=== PATIENT | male | born 1950 | race Caucasian/White ===

== ENCOUNTER 2023-11-22 11:11 | Outpatient (CLI) | payer MEDICARE, SELFPAY ==
[2023-11-22 12:12] LABS: Basophils # 0.1 K/mm3 (0-0.2); Basophils % 0.8 % (0.1-2.0); Eosinophils # 0.1 K/mm3 (0.0-0.4); Eosinophils % 1.1 % (0.1-12.0); Hematocrit 46.7 % (42.0-52.0); Hemoglobin 16.2 g/dL (14.1-18.0); Lymphocytes # 1.1 K/mm3 (0.7-4.5); Lymphocytes % 18.1 % (10-50); Mean Corpuscular HGB Conc 34.7 g/dL (31.8-35.4); Mean Corpuscular Hemoglobin 34.1 pg (27.0-31.2); Mean Corpuscular Volume 98.3 fl (80-94); Mean Platelet Volume 8.3 fl (7.4-10.4); Monocytes # 0.5 K/mm3 (0.1-1.0); Monocytes % 7.4 % (1.7-9.3); Neutrophils # 4.5 K/mm3 (1.8-7.8); Neutrophils % 72.6 % (37.0-80.0); Platelet Count 152 K/mm3 (142-424); Red Blood Count 4.75 M/mm3 (4.60-6.20); Red Cell Distribution Width 13.7 % (11.5-17.5); White Blood Count 6.2 K/mm3 (4.8-10.8)
[2023-11-22 12:35] LABS: Chloride 105 mmol/L (98-107); Sodium 141 mmol/L (136-145)
[2023-11-22 12:36] LABS: Alanine Aminotransferase 27 U/L (12-78); Aspartate Amino Transferase 35 U/L (17-59); Bilirubin,Unconjugated 1.6 mg/dL (0.0-1.1)
[2023-11-22 12:37] LABS: Albumin Level 4.7 g/dl (3.5-5.0); Alkaline Phosphatase 58 U/L (38-126); Bilirubin,Direct 0.1 mg/dl (0.0-0.4); Bilirubin,Indirect 1.6 mg/dL (0.0-0.9); Bilirubin,Total 1.7 mg/dl (0.2-1.3); Chol/HDL Ratio 4.2 (1-3.5); Cholesterol 168 mg/dl (140-200); HDL Cholesterol 40 mg/dl (40-60); Magnesium 2.1 mg/dl (1.6-2.3); Total Protein,Serum 7.3 g/dl (6.3-8.2); Triglycerides 151 mg/dl (30-150); VLDL Cholesterol 30 mg/dL (0-40)
[2023-11-22 12:38] LABS: Alanine Aminotransferase 26 U/L (12-78); Albumin Level 4.7 g/dl (3.5-5.0); Albumin/Globulin Ratio 1.8 (1.1-1.8); Alkaline Phosphatase 61 U/L (38-126); Aspartate Amino Transferase 34 U/L (17-59); Bilirubin,Total 1.7 mg/dl (0.2-1.3); Blood Urea Nitrogen 21 mg/dl (9-20); Carbon Dioxide 26 mmol/L (22.0-30.0); Estimated Glomerular Filt Rate 66 ml/min (>60); GFR (African American) 80 ML/MIN (>60); Globulin 2.6 g/dL (1.3-3.2); Total Protein,Serum 7.3 g/dl (6.3-8.2)
[2023-11-22 12:39] LABS: Calcium 9.1 mg/dl (8.4-10.2); Glucose 82 mg/dl (74-100)
[2023-11-22 12:49] LABS: Direct LDL Cholesterol 95.86 mg/dL (100-129)
[2023-11-22 13:08] LABS: Thyroid Stimulating Hormone 3.29 uIU/mL (0.465-4.68)
[2023-11-22 13:11] LABS: Thyroid Stimulating Hormone 3.28 uIU/mL (0.465-4.68)
[2023-11-22 13:53] LABS: Hemoglobin A1C 5.4 % (4.0-6.0)
== END 2023-11-22 23:59 ==
LOC: LAB 11:13
PROVIDERS: PCP Internal Medicine; Visit Provider Nurse Practitioner
DX: E78.5 Hyperlipidemia, unspecified (principal); I10 Essential (primary) hypertension; I48.91 Unspecified atrial fibrillation; R06.00 Dyspnea, unspecified; R94.31 Abnormal electrocardiogram [ECG] [EKG]; Z79.01 Long term (current) use of anticoagulants; Z85.819 Personal history of malignant neoplasm of unspecified site of lip, oral cavity, and pharynx; Z13.1 Encounter for screening for diabetes mellitus; R53.83 Other fatigue; E05.90 Thyrotoxicosis, unspecified without thyrotoxic crisis or storm; Z79.899 Other long term (current) drug therapy
CPT/HCPCS: 36415; 80048; 80053; 80061; 80076; 83036; 83735; 84439; 84443; 85025

== ENCOUNTER 2023-12-06 14:58 | Outpatient (CLI) | payer MEDICARE, SELFPAY ==
--- NOTE | 2023-12-06 15:01 | CA_ITS ---
APPROVED REPORT EXAM: Comprehensive 2D, Doppler, and color-flow Echocardiogram Photo Booth Operator: Sherrie Barrera CRT Ht: 5 ft 10 in Wt: 176lbs BSA: 1.98 BP: 142/82 mmHg Indications: Abnormal ECG, Atrial Fibrillation, Atrial Fibrillation (chronic), Pre-Op 2D Dimensions LA Volume 45.30 mL LA Volume Index 22.40 mL/m2 (M/F) 16-34 M-Mode Dimensions RVDd 3.65 cm (0.9-2.6) LA Diam 4.05 cm (1.9-4.0) LVDd 3.98 cm (3.5-5.7) LVDs 2.48 cm (3.5-5.7) IVSd 1.54 cm (0.6-1.1) PWd 0.47 cm (0.6-1.1) EF (Teich) 68.40% FS 37.70% EDV (Teich) 69.20 mL TAPSE 2.07 (<1.7) ESV (Teich) 21.90 mL LV Diastology E Decel Time 147 (160-240 msec) E/A Ratio 4.11 LAT A' 3.50 cm/s Aortic Valve AO Peak GR. 5.00 mmHg Mitral Valve MV E Max Franco. 117.0 (40-130 cm/s) MV A Velocity 28.0 (40-130 cm/s) E/A Ratio 4.11 MV PHT 43.0 ms Pulmonary Valve PV Peak Velocity 100.0 (50-150 cm/s) Tricuspid Valve TR P. Velocity 304.00 cm/s RAP Estimate 10.00 mmHg RVSP 46.90 mmHg Left Ventricle The left ventricle is normal size. The left ventricular systolic function is normal. The left ventricular ejection fraction is within the normal range. Proximal septal thickening is noted. There is normal LV segmental wall motion. Diastolic function is indeterminate due to atrial fibrillation. LVEF is 55%. Right Ventricle The right ventricle is normal size. The right ventricular systolic function is normal. Atria The left atrium size is normal. The right atrium size is normal. There is no Doppler evidence of interatrial shunt. Aortic Valve The aortic valve is mildly thickened. There is no aortic valvular stenosis. No aortic regurgitation is present. Mitral Valve The mitral valve leaflets are mildly thickened. No evidence of mitral valve stenosis. Trace mitral regurgitation. Tricuspid Valve The tricuspid valve leaflets are thin and pliable. Mild tricuspid regurgitation. RVSP is 25-30 mmHg. Pulmonic Valve The pulmonary valve is normal in structure. Trace pulmonic regurgitation. Great Vessels The aortic root is normal in size. The ascending aorta is normal in size. Pericardium There is no pericardial effusion. Other Information Study Quality: Fair Conclusion Normal biventricular systolic function. Mild TR. Electronically signed by : Sil Liu MD 12/10/2023 00:11:18
== END 2023-12-06 23:59 ==
LOC: RT 15:01
PROVIDERS: PCP Internal Medicine; Visit Provider Internal Medicine
DX: Z01.810 Encounter for preprocedural cardiovascular examination (principal); R94.31 Abnormal electrocardiogram [ECG] [EKG]; I10 Essential (primary) hypertension; I48.91 Unspecified atrial fibrillation; E78.5 Hyperlipidemia, unspecified; R06.00 Dyspnea, unspecified; Z79.01 Long term (current) use of anticoagulants
CPT/HCPCS: 93306

== ENCOUNTER 2024-01-03 08:45 | Outpatient (CLI) | payer MEDICARE, SELFPAY ==
[2024-01-03 09:41] LABS: Blood Urea Nitrogen 20 mg/dl (9-20); Estimated Glomerular Filt Rate 66 ml/min (>60); GFR (African American) 80 ML/MIN (>60)
[2024-01-03 10:11] LABS: Prostate Specific Ag Screen 0.9 ng/ml (0.0-4.0)
== END 2024-01-03 23:59 ==
LOC: LAB 08:48
PROVIDERS: Nurse Practitioner; PCP Internal Medicine; Visit Provider Urology
DX: Z12.5 Encounter for screening for malignant neoplasm of prostate (principal); E03.9 Hypothyroidism, unspecified; R30.0 Dysuria
CPT/HCPCS: 36415; 82565; 84520; G0103

== ENCOUNTER 2024-01-11 12:55 | Outpatient (CLI) | payer MEDICARE, SELFPAY ==
--- NOTE | 2024-01-11 12:56 | CT_ITS ---
FINAL REPORT TECHNIQUE: After the administration of intravenous contrast, axial images through the chest were performed by computed tomography.This study was performed with techniques to keep radiation doses as low as reasonably achievable, (ALARA). Individualized dose reduction techniques using automated exposure control or adjustment of mA and/or kV according to the patient''s size were employed. CLINICAL HISTORY: h/o throat cancer FINDINGS: There is no axillary adenopathy. There are small mediastinal lymph nodes. There is no adenopathy. The heart size is normal. There is no pericardial or pleural effusion. Limited images of the upper abdomen are unremarkable. T there is a right apical nodule versus focal scarring measuring 14 mm. IMPRESSION: 14 mm right apical nodule versus focal scarring. Recommend follow-up CT in 3 months or PET/CT. Reviewed, Interpreted and Dictated by Matias Howe III, MD Transcribed by Angeles Andrews Authenticated and . [facility]
--- NOTE | 2024-01-11 12:56 | CT_ITS ---
FINAL REPORT TECHNIQUE: Thin section axial CT images with coronal and sagittal reformats were performed through neck after the administration of IV contrast. This study was performed with techniques to keep radiation doses as low as reasonably achievable, (ALARA). CLINICAL HISTORY: h/o throat cancer FINDINGS: There is no adenopathy or mass lesion present the nasopharynx, oropharynx, hypopharynx and larynx are normal. The thyroid is unremarkable. Limited images of the lung apices are unremarkable. No acute osseous abnormality is identified. There is calcified plaque at the left carotid bulb with at least moderate stenosis. IMPRESSION: Calcified plaque at the left carotid bulb with at least moderate stenosis. Consider dedicated CTA of the neck or catheter directed angiogram for further evaluation. Reviewed, Interpreted and Dictated by Matias Howe III, MD Transcribed by Angeles Andrews Authenticated and [facility]
[2024-01-11] MEDS: SODIUM CHLORIDE 0.9% 10ML SYR (RAD ONLY) 10 ML IV (13:26)
[2024-01-11] MEDS: IOPAMIDOL-370 (76%);100ML BOTTLE 75 ML IV (13:26)
== END 2024-01-11 23:59 ==
LOC: RAD 12:56
PROVIDERS: PCP Internal Medicine; Visit Provider Student in an Organized Health Care Education/Training Program
DX: Z85.819 Personal history of malignant neoplasm of unspecified site of lip, oral cavity, and pharynx (principal)
CPT/HCPCS: 70491; 71260; Q9967

== ENCOUNTER 2024-02-05 13:42 | Outpatient (CLI) | payer MEDICARE, SELFPAY ==
--- NOTE | 2024-02-05 13:45 | CA_ITS ---
FINAL REPORT TECHNIQUE: Color Doppler, duplex Doppler and zavaleta scale sonography of the bilateral neck vasculature was performed. Velocities were measured in the carotid arteries. Stenosis evaluation based on velocity criteria. CLINICAL HISTORY: Stenosis and Calcification in left bulb seen on CT scan, HTN, HLD. COMPARISON: None FINDINGS: The peak systolic velocity of the right common carotid artery is 117 cm/sec and internal carotid artery 124 cm/sec. The diastolic velocity in the internal carotid artery is 48 cm/sec. The ICA/CCA ratio is 1.1. Visually, a small amount of plaque is seen. These findings are consistent with less than 50% stenosis. The external carotid artery is patent. The right vertebral artery is patent with antegrade flow. The peak systolic velocity of the left common carotid artery is 141 cm/sec and internal carotid artery 156 cm/sec. The diastolic velocity in the internal carotid artery is 44 cm/sec. The ICA/CCA ratio is 1.6. Visually, a moderate to large amount of plaque is present.. These findings are consistent with less than 50% stenosis. The external carotid artery is patent. The left vertebral artery is patent with antegrade flow. IMPRESSION: No evidence of significant carotid stenosis in the right carotid artery. There is moderate to large plaque present in the left carotid artery, particularly at the bifurcation, although velocities are not elevated enough to consider the percentage of stenosis to be greater than 50%. Bilateral patent vertebral arteries. If indicated, CTA or MRA could further evaluate. Reviewed, Interpreted and Dictated by Matias Howe III, MD Transcribed by Luba Lee Authenticated and [facility]
== END 2024-02-05 23:59 | disposition home or self-care (01) ==
LOC: RT 13:44
PROVIDERS: PCP Internal Medicine; Visit Provider Student in an Organized Health Care Education/Training Program
DX: I65.22 Occlusion and stenosis of left carotid artery (principal)
CPT/HCPCS: 93880

== ENCOUNTER 2024-02-28 08:11 | Outpatient (CLI) | payer MEDICARE, SELFPAY ==
[2024-02-28 08:31] LABS: Basophils # 0.1 K/mm3 (0-0.2); Basophils % 0.6 % (0.1-2.0); Eosinophils # 0.1 K/mm3 (0.0-0.4); Eosinophils % 0.9 % (0.1-12.0); Hematocrit 45.3 % (42.0-52.0); Lymphocytes # 0.9 K/mm3 (0.7-4.5); Mean Platelet Volume 8.1 fl (7.4-10.4); Monocytes # 0.5 K/mm3 (0.1-1.0); Monocytes % 5.9 % (1.7-9.3); Neutrophils # 6.5 K/mm3 (1.8-7.8); Neutrophils % 81.7 % (37.0-80.0); Platelet Count 153 K/mm3 (142-424); Red Blood Count 4.53 M/mm3 (4.60-6.20); Red Cell Distribution Width 14.9 % (11.5-17.5)
[2024-02-28 08:59] LABS: Microscopic, Urine URINE MICROSCOPIC (MICROSCOPIC)
[2024-02-28 09:06] LABS: Appearance,Urine CLEAR (Clear); Bilirubin,Urine Negative (Negative); Blood, Urine Negative (Negative); Color,Urine YELLOW (Yellow); Glucose,Urine (UA) Negative (Negative); Ketones,Urine Negative (Negative); Leukocyte Esterase,Urine 2+ (Negative); Nitrate,Urine Negative (Negative); PH,Urine 6.5 (5.0-8.5); Protein,Urine Negative (Negative); Specific Gravity, Urine <= 1.005 (1.005-1.030); Urobilinogen,Urine 0.2 EU/dl (0.2)
[2024-02-28 09:07] LABS: Anion Gap 10.9 mEq/L (5-15); Blood Urea Nitrogen 18 mg/dl (9-20); Calcium 9.1 mg/dl (8.4-10.2); Carbon Dioxide 26 mmol/L (22.0-30.0); Chloride 108 mmol/L (98-107); Estimated Glomerular Filt Rate 73 ml/min (>60); GFR (African American) 89 ML/MIN (>60); Glucose 92 mg/dl (74-100); Potassium 3.9 mmoL/L (3.5-5.1); Sodium 141 mmol/L (136-145)
[2024-02-28 09:17] LABS: Bacteria,Urine Trace /lpf; RBC,Urine Occasional #/hpf (0-3); Squamous Epithelial Cell,Urine Occasional #/hpf (0-5)
== END 2024-02-28 23:59 | disposition home or self-care (01) ==
LOC: LAB 08:12
PROVIDERS: PCP Internal Medicine; Visit Provider Surgery
DX: K40.90 Unilateral inguinal hernia, without obstruction or gangrene, not specified as recurrent (principal); B96.89 Other specified bacterial agents as the cause of diseases classified elsewhere; R82.90 Unspecified abnormal findings in urine
CPT/HCPCS: 36415; 80048; 81001; 85025; 87086

== ENCOUNTER 2024-03-13 05:59 | Day surgery (SDC) | payer MEDICARE, SELFPAY ==
[2024-03-12 07:42] VITALS: BMI 24.0
[2024-03-13] VITALS (9 sets, daily range): BP systolic 103–174; BP diastolic 59–89; PULSE 66–78; RESP 16–22; TEMP 36.2–36.3; O2SAT 96–100; BMI 24.0
[2024-03-13] MEDS: LACTATED RINGERS 1000ML 1,000 ML 25 ML IV (06:36)
--- NOTE | 2024-03-13 07:11 | P.PNANES_ITS ---
[facility] Disclaimer: The information contained in this section may have been updated after the patient was seen, as this information can be updated by other users. Medical History Enlarged prostate Thyroid disease Glaucoma Personal history of malignant neoplasm of other sites of lip, oral cavity, and pharynx Encounter for pre-operative cardiovascular clearance On continuous oral anticoagulation Abnormal electrocardiogram [ECG] [EKG] Afib Hyperlipidemia History of throat cancer Hypertension Surgical History S/P hernia surgery Family History Father Lung cancer Mother Aneurysm Social History (Updated 03/13/24 @ 06:15 by Sandra Cole RN) Smoking Status: Former smoker alcohol intake: current alcohol intake frequency: a few times a week substance use type: marijuana current occupational status: retired Travel in the last 8 weeks: None [facility] Anesthesia Checklist Patient Identification Patient Identification: Arm Band and Family Structural Data Admitted From: Home Planned Operative Procedure/s: Right Open Inguinal Hernia Repair Consent for Planned Operative Procedure(s) Verified: Yes Verified Documents: Surgical Consent and History and Physical NPO Status Verified Time NPO: 00:00 Additional verifications Anesthesia Reactions: No Hx Blood Transfusions: Yes Blood Transfusion Reaction: No Airway Assessment Mallampati Score:: Class II C-Spine Mobility Assessed: Yes TMJ Mobility Assessed: Yes Dentition: Dentures-good fit (lower dentures removed) Neurological Assessment Level of Consciousness: Awake, Alert and Appropriate Anesthesia Plan Anesthesia Risk discussed: Yes Anesthesia Plan: Verified ASA Class: III Anesthesia Type: General
[2024-03-13] MEDS: CEFAZOLIN SODIUM 1 GM in 0.9 % SODIUM CHLORIDE 50 ML IV (07:35)
[2024-03-13] MEDS: LIDOCAINE 1% 20ML MDV 20 ML (07:48)
--- NOTE | 2024-03-13 08:53 | EXP.OP.NOTE ---
Date of procedure: 03/13/24 Pre-op Diagnosis:: Right inguinal hernia Post-op Diagnosis:: Same Procedure performed:: Open right inguinal hernia repair Surgeon:: Luc Beasley MD FI[employer] INSTALLER:: Eileen Paul Anesthesia: GETA Estimated blood loss (mL): 15 Operative findings:: Complex large chronic indirect defect Severe chronic inflammatory response/adhesions throughout inguinal canal Operative note:: After informed consent was obtained the patient was taken to the operating room and placed in the supine position. General anesthesia was induced and his abdomen and groin/scrotum were prepped and draped in a sterile fashion. After infiltration with local anesthetic an oblique right groin incision was made. A combination of scalpel and electrocautery was used to transect through Dirk's fascia to the level of the external aponeurosis. The external aponeurosis was sharply opened to the level of the external ring. The contents of the canal were carefully elevated. Severe chronic inflammatory response and adhesions were noted throughout. A large complex indirect defect was encountered. Preperitoneal fat was carefully dissected free from surrounding tissue. No definitive hernia sac encountered as it was likely retracted. As stated above, severe inflammatory response and chronic adhesions were noted throughout the canal creating significant difficulty with dissection. No obvious injury to the vas deferens or vasculature was noted. An extra-large PerFix plug was secured in position utilizing interrupted Ethibond. The PerFix overlay was then secured to the shelving edge inferiorly and fascial margin superiorly with interrupted Ethibond. The external aponeurosis was reapproximated with running Vicryl suture. Dirk's fascia was closed in the same manner. The INSORB stapling device was then used to close skin. Dressings were applied and the patient was transferred to recovery in stable condition. Condition: stable Disposition: PACU Specimens:: None Complications:: No immediate
--- NOTE | 2024-03-13 09:06 | EXP.ANES.I ---
[facility] Anesthesia Record Part I Anesthesia Record I Intake, IV Amount: 1,000 Hydration: Adequate Estimated blood loss (mL): 25 Urine output (mL): 200 Blood Pressure: 140/61 SaO2: 98 Pulse Rate: 70 Airway Patency: Patent Respiratory Rate: 22 Temperature: 97.3 F Patient is:: Awake Stable to PACU at:: 09:00
[2024-03-13 09:26] LABS: Microscopic,Cath URINE MICROSCOPIC (MICROSCOPIC)
[2024-03-13 10:18] LABS: Appearance,Urine/Cath CLEAR (Clear); Bilirubin,Cath Negative (Negative); Blood, Urine/Cath Negative (Negative); Color,Urine/Cath YELLOW (Yellow); Glucose,Urine/Cath (UA) Negative (Negative); Ketones,Urine/Cath Negative (Negative); Leukocyte Esterase,Cath 1+ (Negative); Nitrate,Cath Negative (Negative); Protein,Urine/Cath Negative (Negative); Specific Gravity, Urine/Cath 1.015 (1.005-1.030); Urobilinogen,Cath 0.2 EU/dl (0.2)
[2024-03-13 10:46] LABS: Bacteria,Urine/Cath TRACE /lpf; WBC,Urine/Cath Occasional #/hpf (0-3)
--- NOTE | 2024-03-14 08:31 | EXP.ANES.II ---
[facility] Anesthesia Record Part II Anesthesia Record Part II Discharge Time: 09:30 Destination: Surgical Day Care (OP Surgery) PACU nurse assessment reviewed?: Yes Patient Condition:: Good Anesthesia Complications:: None Swallowing reflex intact?: Yes Airway Patency: Patent Cyanosis?: No Blood Pressure: 133/59 SaO2: 100 Respiratory Rate: 18 Pulse Rate: 68 Temperature: 97.3 F Mental Status: Alert & Oriented Pain level:: 0 Nausea and/or vomitting:: None Intake, IV Amount: 0 Hydration: Adequate
[2024-03-14 08:32] VITALS: BP 133/59; PULSE 68; RESP 18; TEMP 36.3; O2SAT 100
== END 2024-03-13 10:30 | disposition home or self-care (01) ==
PROVIDERS: PCP Internal Medicine; Visit Provider Surgery
PROC: (CPT 49505; principal; 2024-03-13 07:30)
DX: K40.90 Unilateral inguinal hernia, without obstruction or gangrene, not specified as recurrent (principal)
CPT/HCPCS: 49505; 81001; 87086; 96374; J3490; J0131; J2405

== ENCOUNTER 2024-11-25 07:15 | Emergency (ER) | payer MEDICARE, SELFPAY ==
[2024-11-25] VITALS (15 sets, daily range): BP systolic 162–260; BP diastolic 90–143; PULSE 67–97; RESP 14–16; TEMP 36.9–37.2; O2SAT 95–100; BMI 37.3
--- NOTE | 2024-11-25 07:29 | XR_ITS ---
FINAL REPORT CLINICAL HISTORY: Shortness of breath COMPARISON: None FINDINGS: The heart size is normal. The mediastinum is normal. Mild linear density right perihilar region probably due to scarring. The lungs are otherwise clear. There are no pleural effusions. There is no pneumothorax. There is no osseous abnormality. IMPRESSION: No acute cardiopulmonary process. Linear density right perihilar region probably due to scarring. Reviewed, Interpreted and Dictated by Sagar Roberson MD Transcribed by Caremn Stewart Authenticated and [facility]
--- NOTE | 2024-11-25 07:29 | XR_ITS ---
FINAL REPORT CLINICAL HISTORY: Shortness of breath, hx laryngeal cancer COMPARISON: None FINDINGS: NECK SOFT TISSUE Two views of the neck using soft tissue technique show a normal appearance of the epiglottis. No abnormal narrowing of the larynx is seen. No abnormal gas collections are present. There is moderate disc space narrowing at C5-6. Small anterior and posterior osteophytes are noted. There is no significant prevertebral soft tissue swelling. IMPRESSION: Unremarkable neck exam using soft tissue technique. Reviewed, Interpreted and Dictated by Sagar Roberson MD Transcribed by Carmen Stewart Authenticated and [facility]
[2024-11-25 07:33] LABS: Coronavirus 19, PCR Not Detected (NotDetected); Influenza A, PCR Not Detected (NotDetected); Influenza B, PCR Not Detected (NotDetected)
[2024-11-25] MEDS: DEXAMETHASONE 4MG/ML 1ML VIAL 10 MG IV (07:37)
--- NOTE | 2024-11-25 07:54 | PC.NURSE ---
pt to radiology via wheelchair
--- NOTE | 2024-11-25 07:56 | ED_ITS ---
Discharge Plan Disposition Patient Disposition: Xfer Other Condition: Serious Prescriptions Prescriptions: No Action Eliquis 5 mg tablet 5 mg PO BID Patient Comments: TAKE 1 TABLET BY MOUTH TWICE DAILY brimonidine-timolol 0.2-0.5 % drops 1 drp Eye-Both levothyroxine 50 mcg tablet See Rx Instructions .ROUTE .COMPLEX Qty: 90 4RF Dose Instruction: TAKE 1 TABLET BY MOUTH DAILY Rx Instructions: TAKE 1 TABLET BY MOUTH DAILY metoprolol succinate 25 mg tablet extended release 24 hr 25 mg PO DAILY Qty: 90 3RF atorvastatin 20 mg tablet 20 mg PO DAILY Qty: 90 3RF Referrals Follow up/Referrals: Jero Patel DO [Primary Care Provider] - See instructions Clinical Impressions Clinical Impression: Acute tracheitis Print Language Print Language: Romansh Discharge ED Provider: Francheska Ramey General Chief Complaint: Shortness of Breath/Dyspnea Stated Complaint: soa sore throat Time Seen by Provider: 11/25/24 07:19 Mode of Arrival: Ambulatory Source of Information: Patient Limitations: No Limitations Description of Symptoms (Recalled from ER Triage Doc. by RN): pt c/o SOA, a mild GRAY and HTN ongoing since last night. pt states he has had a sore thraot x3d. pt has a hx of HTN and throat cancer. History of Present Illness HPI narrative: Patient is a 74-year-old male presenting with shortness of breath. Patient states he has had a sore throat for the last 3 days with associated headache, nasal congestion. Over the past day, patient has had increased work of breathing while at rest and especially with exertion. Family states increased stridor with exertion. Patient denies fever, chills, chest pain. Patient takes metoprolol and Eliquis for atrial fibrillation. Patient has history of throat cancer s/p radiation in 2020 performed in [place]. Patient is followed by ENT at [facility] and has known tracheal stenosis. Patient denies bowel or bladder dysfunction, abdominal pain, fall, tobacco use. Related Data Home Medications ?Medication ?Instructions ?Recorded ?Confirmed apixaban 5 mg tablet (Eliquis) 5 mg PO BID 11/22/23 08/13/24 brimonidine 0.2 %-timolol 0.5 % 1 drp Eye-Both 06/09/24 08/13/24 eye drops Previous Rx's ?Medication ?Instructions ?Recorded levothyroxine 50 mcg tablet See Rx Instructions .Route 11/22/23 .COMPLEX #90 tabs metoprolol succinate 25 mg 25 mg PO DAILY #90 tabs 10/27/24 tablet,extended release 24 hr atorvastatin 20 mg tablet 20 mg PO DAILY #90 tabs 11/19/24 Allergies Allergy/AdvReac Type Severity Reaction Status Date / Time No Known Allergies Allergy Verified 11/25/24 07:44 [facility] Disclaimer: The information contained in this section may have been updated after the patient was seen, as this information can be updated by other users. Medical History (Updated 11/25/24 @ 09:25 by Francheska Ramey MD) Right inguinal hernia Enlarged prostate Thyroid disease Glaucoma Personal history of malignant neoplasm of other sites of lip, oral cavity, and pharynx Encounter for pre-operative cardiovascular clearance On continuous oral anticoagulation Abnormal electrocardiogram [ECG] [EKG] Afib Hyperlipidemia History of throat cancer Hypertension Surgical History (Updated 08/13/24 @ 13:13 by JERRY Doherty) Hx of inguinal hernia surgery S/P hernia surgery Family History Father Lung cancer Mother Aneurysm Social History Smoking Status: Never smoker alcohol intake: current alcohol intake frequency: a few times a week substance use type: marijuana current occupational status: retired Travel in the last 8 weeks: None Have you lived/traveled outside US in past 30 days?: No Contact w/someone who lives/traveled outside US past 30 days?: No Exposure to someone with infectious disease in past 14 days?: No Do you have a fever (greater than 100.4 F or 38 C)?: No Have you tested positive for COVID-19: No Exposed to someone with COVID-19 in past 14 days?: No Do you have a sore throat?: Yes Do you have a cough?: No Do you have any weakness?: No Do you have any diarrhea?: No Are you experiencing any unusual bleeding?: No Do you have any muscle aches/pain?: No Do you have any abdominal pain?: No Are you experiencing loss of taste or smell?: No Other Medical History Have you received the Pneumonia Vaccine: No ROS Obtained: Yes All systems reviewed & no additional complaints except as documented Physical Exam General General appearance: alert and in no apparent distress Head Head exam: atraumatic, normocephalic and normal inspection Eye Eye exam: Present normal appearance, PERRL and EOMI ENT ENT exam: Present normal exam, normal oropharynx, mucous membranes moist and normal external ear exam Neck Neck exam: Present normal inspection, full ROM and trachea midline; Absent meningismus or lymphadenopathy Chest Chest inspection: Present normal inspection and symmetric chest wall rise; Absent tenderness Respiratory Respiratory exam: Present normal lung sounds bilaterally and other (Prolonged inspiration without audible stridor); Absent respiratory distress Cardiovascular Cardiovascular exam: Present regular rate and normal rhythm; Absent JVD Abdominal Exam Abdominal exam: Present soft; Absent distention, tenderness or guarding Extremities Exam Extremities exam: Present normal inspection, full ROM and normal capillary refill; Absent calf tenderness Back Exam Back exam: Present normal inspection; Absent tenderness Neurological Exam Neurological exam: Present alert and oriented X3 Psychiatric Psychiatric exam: Present normal affect and normal mood Skin Skin exam: Present warm, dry, intact and normal color Lymphatic Lymphatic Findings: no adenopathy HEART Score HEART Score HEART Score assessment performed?: No Critical Care Critical Care Time Critical Care Time: No Medical Decision Making Medical Records Medical records reviewed: Yes I reviewed the patient's medical records. Lyle Inquiry Pt receiving controlled substance: No Vital Signs Vital Signs: 11/25/24 07:19 11/25/24 07:22 11/25/24 07:24 Temperature 98.9 F Temperature Source Oral Pulse Rate 92 H 97 H Pulse Rate [Left] 85 Respiratory Rate 14 Blood Pressure 260/123 H 233/143 H Blood Pressure [Right Arm] 260/123 H Blood Pressure Mean [Right Arm] 168 Blood Pressure Source [Right Arm] Automatic Cuff Blood Pressure Position [Right Arm] Sitting 02 Sat by Pulse Oximetry 95 97 96 Oxygen Delivery Method Room Air 11/25/24 07:30 11/25/24 07:43 11/25/24 08:00 Temperature Temperature Source Pulse Rate 92 H 74 88 Pulse Rate [Left] Respiratory Rate Blood Pressure 200/127 H 191/97 H 182/90 H Blood Pressure [Right Arm] Blood Pressure Mean [Right Arm] Blood Pressure Source [Right Arm] Blood Pressure Position [Right Arm] 02 Sat by Pulse Oximetry 97 97 95 Oxygen Delivery Method Room Air 11/25/24 08:30 11/25/24 09:11/25/24 09:28 Temperature Temperature Source Pulse Rate 68 69 89 Pulse Rate [Left] Respiratory Rate Blood Pressure 177/101 H 226/113 H Blood Pressure [Right Arm] Blood Pressure Mean [Right Arm] Blood Pressure Source [Right Arm] Blood Pressure Position [Right Arm] 02 Sat by Pulse Oximetry 96 95 Oxygen Delivery Method Room Air Room Air 11/25/24 09:28 11/25/24 09:31 11/25/24 10:00 Temperature Temperature Source Pulse Rate 81 67 84 Pulse Rate [Left] Respiratory Rate Blood Pressure 169/90 H 176/95 H Blood Pressure [Right Arm] Blood Pressure Mean [Right Arm] Blood Pressure Source [Right Arm] Blood Pressure Position [Right Arm] 02 Sat by Pulse Oximetry 100 97 Oxygen Delivery Method Room Air Room Air 11/25/24 10:30 Temperature Temperature Source Pulse Rate 83 Pulse Rate [Left] Respiratory Rate Blood Pressure 165/107 H Blood Pressure [Right Arm] Blood Pressure Mean [Right Arm] Blood Pressure Source [Right Arm] Blood Pressure Position [Right Arm] 02 Sat by Pulse Oximetry 96 Oxygen Delivery Method Room Air Lab Data Lab results reviewed: Yes I reviewed the patient's lab results. Labs: Lab Results 11/25/24 07:20: SARS-CoV-2 (PCR) Not detected, Influenza A Untype (PCR) Not detected, Influenza Type B (PCR) Not detected 11/25/24 07:25: WBC 14.9 H, RBC 5.33, Hgb 17.2, Hct 50.1, MCV 94.0, MCH 32.3 H, MCHC 34.3, RDW 12.7, Plt Count 158, MPV 11.3 H, Neut % (Auto) 88.4 H, Lymph % (Auto) 5.3 L, Kane % (Auto) 5.1, Eos % (Auto) 0.3, Baso % (Auto) 0.4, Neut # (Auto) 13.2 H, Lymph # (Auto) 0.8, Kane # (Auto) 0.8, Eos # (Auto) 0.1, Baso # (Auto) 0.1, D-Dimer 0.61 H, Sodium 143, Potassium 5.7 H, Chloride 102, Carbon Dioxide 28, Anion Gap 18.7 H, BUN 25 H, Creatinine 1.10, Estimated Creat Clear 100, Estimated GFR 66, Est GFR ( Amer) 79, Glucose 139 H, Calcium 9.1, T otal Bilirubin 3.1 H, AST 50, ALT 30, Alkaline Phosphatase 64, Total Protein 8.8 H, Albumin 5.3 H, Globulin 3.5 H, Albumin/Globulin Ratio 1.5, HCV Ab CHRIS w/Rflx PCR Qn Negative, HIV Ag/Ab Combo Qual Negative 11/25/24 08:27: VBG pH 7.34, VBG pCO2 50.3, VBG pO2 45.3 H, VBG HCO3 26.3, VBG Total CO2 27.8 H, VBG O2 Saturation 78.2 H, VBG Base Excess 0.4, VBG Lactic Acid 1.8 11/25/24 07:25 11/25/24 07:25 Response Orders (Tests/Meds): ED MEDICATIONS Generic Name Dose Route Start Last Admin Trade Name Freq PRN Reason Stop Dose Admin Vancomycin HCl 2,000 mg/ 250 mls @ 125 mls/hr 11/25/24 09:15 11/25/24 10:27 Sodium Chloride IV 11/25/24 11:14 125 mls/hr ONCE ONE Administration Discontinued Medications Generic Name Dose Route Start Last Admin Trade Name Freq PRN Reason Stop Dose Admin Dexamethasone Sodium Phosphate 10 mg 11/25/24 07:29 11/25/24 07:37 Dexamethasone 4mg/Ml 1ml Vial IV 11/25/24 07:30 10 mg ONCE ONE Administration Epinephrine 0.5 ml 11/25/24 09:08 11/25/24 09:28 Epinephrine 2.25% Neb 0.5ml Ud IH 11/25/24 09:09 0.5 ml ONCE ONE Administration Piperacillin Sod/Tazobactam 100 mls @ 200 mls/hr 11/25/24 09:08 11/25/24 09:23 Sod 4.5 gm/ Sodium Chloride IV 11/25/24 09:37 200 mls/hr ONCE ONE Administration ORDERS Category Date Time Status CXR --portable [XR chest portable] Stat Exams 11/25/24 07:29 Completed Neck soft tissue XR [XR soft tissue neck] Stat Exams 11/25/24 07:29 Completed CBC w/Auto Diff [Complete Blood Count Auto Diff] Stat Lab 11/25/24 07:25 Completed CMP [Comprehensive Metabolic Panel] Stat Lab 11/25/24 07:25 Completed D-Dimer Stat Lab 11/25/24 07:25 Completed HIV Combo Stat Lab 11/25/24 07:25 Completed Hepatitis C Ab Qual. W/ RFX Stat Lab 11/25/24 07:25 Completed Rapid PCR Covid and Flu A/B Stat Lab 11/25/24 07:20 Completed VBG [Venous Blood Gas] Stat RT 11/25/24 08:27 Completed ECG Data Tracing #1: ECG Narrative: Atrial fibrillation with a rate of 82, no QTc prolongation, no significant ST elevation/depression or evidence of acute ischemia. MDM Narrative Medical Decision Narrative: In summary, this is a 74-year-old male presenting with shortness of breath. Differential diagnosis includes but is not limited to, viral vs bacterial URI, tracheitis, radiation stenosis, pneumonia, among others. Patient does not have audible stridor at rest, however he becomes increasingly stridulous with activity. Patient has obvious prolonged inspiration. No wheezes or abnormal breath sounds appreciated on exam. No swelling visible in patient's oropharynx. Given patient's history, significant concern for tracheal stenosis. Will evaluate with CBC, CMP, VBG, D-dimer, CXR, neck XR. Patient given IV Decadron, racemic epinephrine, Zosyn, vancomycin. Patient's laboratory evaluation was personally reviewed by me and significant for a D-dimer slightly elevated at 0.61, however utilizing the years criteria, PE is excluded. VBG with normal lactic acid and no evidence of CO2 retention or acidosis. COVID/flu swab negative. CBC significant for leukocytosis of 14.9, no anemia, no thrombocytopenia. Hyperkalemic at 5.7 without EKG changes. CXR and neck XR personally reviewed by me and significant for severe narrowing of upper airway and subglottic region, no focal consolidation visualized in lung kennedy. CT neck/chest considered and ultimately not performed based on availability of ENT at [facility] to perform bedside scope. They were contacted and were able to come and evaluate the patient in the emergency department. Scope performed at bedside which noted slowed closing of vocal cords and subglottic stenosis. Recommended additional treatments as per above for possible bacterial tracheitis. Based on concern for worsening airway, will transfer patient. is currently on divert. Contacted [facility] and they would be placing the patient on a wait list. [place] does not have ENT capability. I had an interactive discussion with Dr. Rincon (ENT) at who has agreed to have the patient evaluated in their emergency department. I had a conversation with Dr. Hernandes, the ED attending who has agreed to evaluate the patient on arrival. Due to concern for airway obstruction, patient will be transferred by ALS. Patient in agreement with this plan. Patient transferred in stable condition. Francheska Ramey MD PGY-3, Emergency Medicine
--- NOTE | 2024-11-25 07:59 | PC.NURSE ---
pt returned from radiology via
[2024-11-25 08:21] LABS: D-Dimer 0.61 ug/mL (0.0-0.5)
--- NOTE | 2024-11-25 08:27 | PC.NURSE ---
I rounded on the pt. no new complaints at this time. no needs voiced. he is visiting with family at this time. call hansen in reach.
--- NOTE | 2024-11-25 08:29 | PC.NURSE ---
spoke with ENT. they will be down to see pt.
--- NOTE | 2024-11-25 08:31 | PC.NURSE ---
I notified Delmy in resp that I sent a VBG to the lab.
[2024-11-25 08:37] LABS: Lactate Venous 1.8 mmol/L (0.4-2.0); VBG Base Excess 0.4 mmol/L (-2.4-2.3); VBG HCO3 26.3 mmol/L (23-30); VBG Oxygen Saturation 78.2 % (50-70); VBG PCO2 50.3 mmol/L (35-51); VBG PH 7.34 mmol/L (7.31-7.41); VBG PO2 45.3 mmol/L (28-40); VBG Total CO2 27.8 mmol/L (23-27)
--- NOTE | 2024-11-25 08:55 | PC.NURSE ---
ENT MD AT [facility]
--- NOTE | 2024-11-25 09:07 | PC.NURSE ---
I inquired about the need for blood cultures. states they are not needed at this time.
--- NOTE | 2024-11-25 09:14 | PC.NURSE ---
called radiology to power share images to [facility] and burn a disc this time
[2024-11-25 09:18] LABS: Albumin Level 5.3 g/dl (3.5-5.0); Chloride 102 mmol/L (98-107); Sodium 143 mmol/L (136-145)
[2024-11-25 09:19] LABS: Potassium 5.7 mmoL/L (3.5-5.1)
[2024-11-25 09:21] LABS: Alanine Aminotransferase 30 U/L (12-78); Anion Gap 18.7 mEq/L (5-15); Aspartate Amino Transferase 50 U/L (17-59); Blood Urea Nitrogen 25 mg/dl (9-20); Carbon Dioxide 28 mmol/L (22.0-30.0); Creatinine Clearance Estimated 100 mL/min (50-200); Estimated Glomerular Filt Rate 66 ml/min (>60); GFR (African American) 79 ML/MIN (>60)
[2024-11-25 09:22] LABS: Albumin/Globulin Ratio 1.5 (1.1-1.8); Alkaline Phosphatase 64 U/L (38-126); Bilirubin,Total 3.1 mg/dl (0.2-1.3); Calcium 9.1 mg/dl (8.4-10.2); Globulin 3.5 g/dL (1.3-3.2); Glucose 139 mg/dl (74-100); Total Protein,Serum 8.8 g/dl (6.3-8.2)
[2024-11-25] MEDS: PIPERACILLIN/TAZO 4.5 GM in 0.9 % SODIUM CHLORIDE 100 ML IV (09:23)
--- NOTE | 2024-11-25 09:26 | PC.NURSE ---
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
--- NOTE | 2024-11-25 09:27 | PC.NURSE ---
speaking with at this time
[2024-11-25] MEDS: EPINEPHRINE 2.25% NEB 0.5ML UD 0.5 ML IH (09:28)
--- NOTE | 2024-11-25 09:30 | ECG_ITS ---
APPROVED REPORT Exam: Resting ECG HR:82 bpm ECG Measurements Heart Rate 82 AXES QRSd 78 QRS 62 QT 340 T 46 QTc 378 Conclusion ATRIAL FIBRILLATION ABNORMAL RHYTHM ECG UNCONFIRMED REPORT Abnormal Electrocardiogram Electronically signed by : Francheska Ramey, 11/28/2024 07:13:10
--- NOTE | 2024-11-25 09:30 | PC.NURSE ---
stated to the er md that they are on divert at this time
--- NOTE | 2024-11-25 09:33 | PC.NURSE ---
Addendum entered by Ramila Harrell, JERRY 11/25/24 09:35: ent services not emt Original Note: called [facility] at this time to possible transfer to there facility for emt service waiting on a call back
--- NOTE | 2024-11-25 09:59 | PC.NURSE ---
Dr. Ramey at [facility] for update on POC
--- NOTE | 2024-11-25 10:03 | PC.NURSE ---
Call out to [facility] for possible transfer. [facility] currently is wait-listed.
[2024-11-25 10:06] LABS: HIV Combo NEGATIVE (Negative)
[2024-11-25 10:07] LABS: Basophils # 0.1 K/mm3 (0-0.2); Basophils % 0.4 % (0.1-2.0); Eosinophils # 0.1 K/mm3 (0.0-0.4); Eosinophils % 0.3 % (0.1-12.0); Hematocrit 50.1 % (42.0-52.0); Hemoglobin 17.2 g/dL (14.1-18.0); Lymphocytes # 0.8 K/mm3 (0.7-4.5); Lymphocytes % 5.3 % (10-50); Mean Corpuscular HGB Conc 34.3 g/dL (31.8-35.4); Mean Corpuscular Hemoglobin 32.3 pg (27.0-31.2); Mean Platelet Volume 11.3 fl (7.4-10.4); Monocytes # 0.8 K/mm3 (0.1-1.0); Monocytes % 5.1 % (1.7-9.3); Neutrophils # 13.2 K/mm3 (1.8-7.8); Neutrophils % 88.4 % (37.0-80.0); Platelet Count 158 K/mm3 (142-424); Red Blood Count 5.33 M/mm3 (4.60-6.20); Red Cell Distribution Width 12.7 % (11.5-17.5); White Blood Count 14.9 K/mm3 (4.8-10.8)
--- NOTE | 2024-11-25 10:10 | PC.NURSE ---
[facility] does not have ENT services. Spoke with Pastor in the ENT clinic and she is going to have out ENT here at [facility] call [facility] and speak with their ENT Team. Dr. Karoline caro.
[2024-11-25 10:15] LABS: Hepatitis C Ab Qual. W/ RFX NEGATIVE (Negative)
[2024-11-25] MEDS: VANCOMYCIN HCL 2,000 MG in 0.9 % SODIUM CHLORIDE 250 ML 125 MG IV (10:27)
--- NOTE | 2024-11-25 10:45 | PC.NURSE ---
Dr. Ramey speaking with Dr. Lopez, ENT at . [facility] called back and reports they would not be able to care for the patient, they would need to send them to [facility].
--- NOTE | 2024-11-25 11:10 | PC.NURSE ---
I called report to Carolyn ARANA at [facility].
--- NOTE | 2024-11-25 11:23 | PC.NURSE ---
notified [facility] ems of transfer to
--- NOTE | 2024-11-25 11:25 | PC.NURSE ---
called care management for pre auth for transfer on insurance
--- NOTE | 2024-11-25 11:43 | PC.NURSE ---
EMS at for pt transfer to
--- NOTE | 2024-11-26 08:44 | EXP.ENTCONS ---
History of Present Illness *Admission Date: 11/25/24 *Reason for visit:: dyspnea *History of present illness: hx throat ca. Presents to ED on 11/25/2024 with concerns of dyspnea and hoarseness. [facility] Disclaimer: The information contained in this section may have been updated after the patient was seen, as this information can be updated by other users. Medical History (Updated 11/25/24 @ 09:25 by Francheska Ramey MD) Right inguinal hernia Enlarged prostate Thyroid disease Glaucoma Personal history of malignant neoplasm of other sites of lip, oral cavity, and pharynx Encounter for pre-operative cardiovascular clearance On continuous oral anticoagulation Abnormal electrocardiogram [ECG] [EKG] Afib Hyperlipidemia History of throat cancer Hypertension Surgical History (Updated 08/13/24 @ 13:13 by JERRY Doherty) Hx of inguinal hernia surgery S/P hernia surgery Family History Father Lung cancer Mother Aneurysm Social History Smoking Status: Never smoker alcohol intake: current alcohol intake frequency: a few times a week substance use type: marijuana current occupational status: retired Travel in the last 8 weeks: None Have you lived/traveled outside US in past 30 days?: No Contact w/someone who lives/traveled outside US past 30 days?: No Exposure to someone with infectious disease in past 14 days?: No Do you have a fever (greater than 100.4 F or 38 C)?: No Have you tested positive for COVID-19: No Exposed to someone with COVID-19 in past 14 days?: No Do you have a sore throat?: Yes Do you have a cough?: No Do you have any weakness?: No Do you have any diarrhea?: No Are you experiencing any unusual bleeding?: No Do you have any muscle aches/pain?: No Do you have any abdominal pain?: No Are you experiencing loss of taste or smell?: No Review of Systems Constitutional Constitutional: Reports system reviewed and no additional complaints, except as documented Eyes Eyes: Reports system reviewed and no additional complaints, except as documented ENT Ears, Nose, Mouth, and Throat: Reports system reviewed and no additional complaints, except as documented, Reports as per HPI, Reports hoarseness, Reports throat swelling and Reports other (SOA) *Cardiovascular Cardiovascular: Reports system reviewed and no additional complaints, except as documented and Reports dyspnea *Respiratory Respiratory: Reports system reviewed and no additional complaints, except as documented, Reports as per HPI and Reports dyspnea *Neurologic Neurologic: Reports system reviewed and no additional complaints, except as documented Allergic/Immunologic Allergic/Immunologic: Reports throat swelling Meds Home Medications and Allergies Home Medications ?Medication ?Instructions ?Recorded ?Confirmed ?Type apixaban 5 mg tablet (Eliquis) 5 mg PO BID 11/22/23 08/13/24 History levothyroxine 50 mcg tablet See Rx Instructions .Route 11/22/23 08/13/24 Rx .COMPLEX #90 tabs brimonidine 0.2 %-timolol 0.5 % 1 drp Eye-Both 06/09/24 08/13/24 History eye drops metoprolol succinate 25 mg 25 mg PO DAILY #90 tabs 10/27/24 Rx tablet,extended release 24 hr atorvastatin 20 mg tablet 20 mg PO DAILY #90 tabs 11/19/24 Rx New Prescriptions to Start Prescriptions: Allergies Allergy/AdvReac Type Severity Reaction Status Date / Time No Known Allergies Allergy Verified 11/25/24 07:44 Results Labs 11/25/24 07:25 11/25/24 07:25 Labs: Abnormal lab results 11/25/24 Range/Units 07:25 WBC 14.9 H (4.8-10.8) K/mm3 MCH 32.3 H (27.0-31.2) pg MPV 11.3 H (7.4-10.4) fl Neut % (Auto) 88.4 H (37.0-80.0) % Lymph % (Auto) 5.3 L (10-50) % Neut # (Auto) 13.2 H (1.8-7.8) K/mm3 D-Dimer 0.61 H (0.0-0.5) ug/mL Potassium 5.7 H (3.5-5.1) mmoL/L Anion Gap 18.7 H (5-15) mEq/L BUN 25 H (9-20) mg/dl Glucose 139 H (74-100) mg/dl Total Bilirubin 3.1 H (0.2-1.3) mg/dl Total Protein 8.8 H (6.3-8.2) g/dl Albumin 5.3 H (3.5-5.0) g/dl Globulin 3.5 H (1.3-3.2) g/dL H & H 11/25/24 Range/Units 07:25 Hgb 17.2 (14.1-18.0) g/dL Hct 50.1 (42.0-52.0) % All other labs normal. Assessment and Plan *Assessment and plan (1) History of throat cancer: Status: Acute Category: Medical Code(s): Z85.819 - Personal history of malignant neoplasm of unspecified site of lip, oral cavity, and pharynx (2) Dyspnea: Status: Acute Qualifiers: Dyspnea type: dyspnea on exertion Qualified Code(s): R06.09 - Other forms of dyspnea Category: Medical Code(s): R06.00 - Dyspnea, unspecified (3) Acute tracheitis: Status: Acute Qualifiers: Airway obstruction: without obstruction Qualified Code(s): J04.10 - Acute tracheitis without obstruction Category: Medical Code(s): J04.10 - Acute tracheitis without obstruction Plan Patient was seen in ER urgerntly this AM 11/25/2024 around 9:00[address] Per Dr Thompson and myself assist ([place] Gian [employer]) S: known pt to ENT, HO laryngeal cancer s/p radiation in [place] around 3 years ago, presents with 3 day HO worsening SOA, URI, cough. Is getting progressively more difficult to breath with exertion per pt. 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
== END 2024-11-25 11:49 | disposition other institution (70) ==
PROVIDERS: Emergency Provider Student in an Organized Health Care Education/Training Program; PCP Internal Medicine
DX: J04.10 Acute tracheitis without obstruction (principal); R06.00 Dyspnea, unspecified; R06.02 Shortness of breath; J02.9 Acute pharyngitis, unspecified; R51.9 Headache, unspecified; I10 Essential (primary) hypertension; R09.81 Nasal congestion; Z85.819 Personal history of malignant neoplasm of unspecified site of lip, oral cavity, and pharynx
CPT/HCPCS: 70360; 71045; 80053; 82803; 85025; 85378; 86803; 87389; 87636; 93005; 96365; 96366; 96367; 96374; 99252; 99285; J1100; J2543; J3370

== ENCOUNTER 2024-12-04 11:15 | Outpatient (CLI) | payer MEDICARE, SELFPAY | END 2024-12-04 23:59 | disposition home or self-care (01) | LOC: LAB.DROPOF 12-05 12:49 | PROVIDERS: PCP Internal Medicine; Visit Provider Internal Medicine | DX: N40.1 Benign prostatic hyperplasia with lower urinary tract symptoms (principal); R33.8 Other retention of urine | CPT/HCPCS: 82043 ==

== ENCOUNTER 2025-06-04 10:51 | Outpatient (CLI) | payer MEDICARE, SELFPAY ==
[2025-06-04 15:06] LABS: Hematocrit 47.8 % (42.0-52.0); Hemoglobin 15.4 g/dL (14.1-18.0); Immature Granulocytes % 0.4 %; Mean Corpuscular HGB Conc 32.2 g/dL (31.8-35.4); Mean Corpuscular Hemoglobin 30.8 pg (27.0-31.2); Mean Corpuscular Volume 95.6 fl (80-94); Nucleated Red Blood Cells % 0 %; Platelet Count 163 K/mm3 (142-424); Red Blood Count 5.00 M/mm3 (4.60-6.20); Red Cell Distribution Width-SD 48.0 fL; White Blood Count 7.8 K/mm3 (4.8-10.8)
[2025-06-04 15:46] LABS: Alanine Aminotransferase 16 U/L (12-78); Albumin Level 4.7 g/dl (3.5-5.0); Albumin/Globulin Ratio 2.0 (1.1-1.8); Alkaline Phosphatase 84 U/L (38-126); Anion Gap 13.5 mEq/L (5-15); Aspartate Amino Transferase 25 U/L (17-59); Bilirubin,Total 1.4 mg/dl (0.2-1.3); Blood Urea Nitrogen 21 mg/dl (9-20); Calcium 9.9 mg/dl (8.4-10.2); Carbon Dioxide 27 mmol/L (22.0-30.0); Chloride 105 mmol/L (98-107); Cholesterol 141 mg/dl (140-200); Creatinine,Serum 0.90 mg/dl (0.66-1.25); Estimated Glomerular Filt Rate 83 ml/min (>60); GFR (African American) 100 ML/MIN (>60); Globulin 2.4 g/dL (1.3-3.2); Glucose 99 mg/dl (74-100); HDL Cholesterol 46 mg/dl (40-60); Potassium 4.5 mmoL/L (3.5-5.1); Sodium 141 mmol/L (136-145); Total Protein,Serum 7.1 g/dl (6.3-8.2); Triglycerides 121 mg/dl (30-150)
[2025-06-04 16:17] LABS: Thyroid Stimulating Hormone 2.74 uIU/mL (0.465-4.68)
--- OUTSIDE RECORDS SUMMARY | 2025-06-05 11:13 | XMS_ITS | Clinical Summary ---
Author Organization Address [address] [place] [address] Care Team Providers Care Oracle Dba Name Role Phone Pcp, No Primary Care Provider Source Comments This information has been disclosed to you from confidential records protectedfrom disclosure by state law. You shall make no further disclosure of thisinformation without the specific, written, and informed release of theindividual to whom it pertains, or as otherwise permitted by law. A generalauthorization for the release of medical or other information is not sufficientfor the purposes of therelease of HIV test results or diagnoses. [id number] Allergies No known active allergies Medications apixaban (ELIQUIS) 5 mg Tab Take 1 tablet (5 mg total) by mouth 2 times a day. Active atorvastatin (LIPITOR) 20 MG tablet Take 1 tablet (20 mg total) by mouth at bedtime. Active brimonidine-theresa oloL (COMBIGAN) 0.2-0.5 % ophthalmic solution Place 1 drop into both eyes every 12 hours. Active levothyroxine (SYNTHROID) 50 MCG tablet Take 1 tablet (50 mcg total) by mouth every morning before breakfast. Active metoprolol succinate (TOPROL-XL) 25 MG 24 hr tablet Take 1 tablet (25 mg total) by mouth daily. Active Social History Tobacco Use Types Packs/Day Years Used Date Smoking Tobacco: Never Assessed Sex and Gender Information Value Date Recorded Sex Assigned at Not on file Legal Sex Male 10:43 AM EST Gender Identity Not on file Sexual Orientation Not on file Last Filed Vital Signs Vital Sign Reading Time Taken Comments Blood Pressure 115/69 11/26/2024 11:09 AM EST Pulse 71 11/26/2024 11:09 AM EST Temperature 36.8 C (98.2 F) 11/26/2024 11:09 AM EST Respiratory Rate 17 11/26/2024 11:09 AM EST Oxygen Saturation 100% 11/26/2024 12:21 PM EST Inhaled Oxygen Concentration 100% 11/26/2024 1 2:21 PM EST Weight 77.6 kg (171 lb) 11/25/2024 7:24 PM EST Height 177.8 cm (5' 10 ) 11/25/2024 7:24 PM EST Body Mass Index 24.54 11/25/2024 7:24 PM EST Plan of Treatment Health Maintenance Due Date Last Done Comments Abnormal Colonoscopy Follow Up 1951 Alcohol Misuse Screening 1969 Depression Screening 1969 Immunization: DTaP/Tdap/Td (1 - Tdap) 1970 Cologuard (FIT-DNA) 1996 Colonoscopy 1996 Colorectal Cancer Screening (MyChart) 1996 Stool Testing (gFOBT) 1996 Immunization: Pneumococcal (1 of 1 - PCV) 2001 Immunization: Zoster (1 of 2) 2001 Immunization: COVID-19 ( - 2023- season) 2024 Immunization: Influenza (MyChart) (#1) 2025 Immunization: RSV (Adult) (1 - 1-dose 75+ series) 08/29 Insurance BLUE MEDICARE ADVANTAGE Advance Directives For more information, please contact: [phone] * Full Code (Latest Code Status on File) Date Activated Date Inactivated Comments 11/25/2024 7:06 PM 11/26/2024 5:30 PM Care Teams Oracle Dba Relationship Specialty Start Date End Date Pcp, No No Address PCP - General 11/25/24
--- OUTSIDE RECORDS SUMMARY | 2025-06-05 12:13 | XMS_ITS | CCD ---
Author Organization Unknown Care Team Providers Care Pediatric Orthodontist Name Role Phone Unavailable Primary Care Provider Unavailabl e Unavailable Chronic Care Management Unavaila ble Summary Purpose DataExchange Insurance Providers Payer name Policy type / Coverage type Covered alliance party ID Effective Begin Date Effective End Date [facility] [id number] Unknown Unknown Family History Family History data not found Medication Administered No Medication Administered data Reason For Visit No Reason For Visit data Medical Equipment No Medical Equipment data Advance Directives No Advance Directive data
--- OUTSIDE RECORDS SUMMARY | 2025-06-05 12:13 | XMS_ITS | CCD ---
Author Organization Unknown Care Team Providers Care Atmospheric Chemist Name Role Phone Unavailable Primary Care Provider Unavailabl e Unavailable Chronic Care Management Unavaila ble Summary Purpose DataExchange Insurance Providers Payer name Policy type / Coverage type Covered green party ID Effective Begin Date Effective End Date [facility] [id number] Unknown Unknown Family History Family History data not found Medication Administered No Medication Administered data Reason For Visit No Reason For Visit data Medical Equipment No Medical Equipment data Advance Directives No Advance Directive data
== END 2025-06-04 23:59 | disposition home or self-care (01) ==
LOC: LAB.DROPOF 06-05 11:03
PROVIDERS: PCP Family Medicine; Visit Provider Family Medicine
DX: E78.2 Mixed hyperlipidemia (principal); E03.9 Hypothyroidism, unspecified; Z12.5 Encounter for screening for malignant neoplasm of prostate; Z79.01 Long term (current) use of anticoagulants; R73.09 Other abnormal glucose
CPT/HCPCS: 80053; 80061; 84443; 85025; G0103

== ENCOUNTER 2025-06-22 13:20 | Outpatient (CLI) | payer MEDICARE, SELFPAY ==
--- OUTSIDE RECORDS SUMMARY | 2025-06-22 13:24 | XMS_ITS | Clinical Summary ---
Author Organization [facility] Address [address] [place] [address] Care Team Providers Care Complex Human Resources Manager Name Role Phone Pcp, No Primary Care [...] therelease of HIV test results or diagnoses. [id number] Allergies No known active allergies Medications [...] Advance Directives For more information, please contact: [phone] * Full Code (Latest Code Status on File) Date Activated Date Inactivated Comments 11/25/2024 7:06 PM 11/26/2024 5:30 PM Care Teams Complex Human Resources Manager Relationship Specialty Start Date End Date Pcp, No No Address PCP - General 11/25/24
--- OUTSIDE RECORDS SUMMARY | 2025-06-22 14:23 | XMS_ITS | CCD ---
Author Organization Unknown Care Team Providers Care Manager Financial Name Role Phone Unavailable Primary Care Provider Unavailabl e Unavailable Chronic Care Management Unavaila ble Summary Purpose DataExchange Insurance Providers Payer name Policy type / Coverage type Covered alliance party ID Effective Begin Date Effective End Date [facility] [id number] Unknown Unknown Family History Family History data not found Medication Administered No Medication Administered data Reason For Visit No Reason For Visit data Medical Equipment No Medical Equipment data Advance Directives No Advance Directive data
--- OUTSIDE RECORDS SUMMARY | 2025-06-22 14:23 | XMS_ITS | CCD ---
Author Organization Unknown Care Team Providers Care Aquatic Ecologist Name Role Phone Unavailable Primary Care Provider Unavailabl e Unavailable Chronic Care Management Unavaila ble Summary Purpose DataExchange Insurance Providers Payer name Policy type / Coverage type Covered libertarian ID Effective Begin Date Effective End Date [facility] [id number] Unknown Unknown Family History Family History data not found Medication Administered No Medication Administered data Reason For Visit No Reason For Visit data Medical Equipment No Medical Equipment data Advance Directives No Advance Directive data
[2025-06-22 16:10] LABS: Microscopic, Urine URINE MICROSCOPIC (MICROSCOPIC)
[2025-06-22 17:34] LABS: Bilirubin,Urine Negative (Negative); Color,Urine YELLOW (Yellow); Glucose,Urine (UA) Negative (Negative); Ketones,Urine Negative (Negative); Leukocyte Esterase,Urine 3+ (Negative); PH,Urine 6.5 (5.0-8.5); Protein,Urine Negative (Negative); Specific Gravity, Urine 1.010 (1.005-1.030); Urobilinogen,Urine 0.2 EU/dl (0.2)
[2025-06-22 20:35] LABS: Bacteria,Urine 2+ /lpf; Squamous Epithelial Cell,Urine Occasional #/hpf (0-5); WBC,Urine 50-100 #/hpf (0-3)
[2025-06-23 11:23] LABS: PSA, Free 0.23 ng/mL
== END 2025-06-22 23:59 | disposition home or self-care (01) ==
LOC: LAB 13:20
PROVIDERS: PCP Family Medicine; Visit Provider Urology
DX: R97.20 Elevated prostate specific antigen [PSA] (principal); R33.9 Retention of urine, unspecified
CPT/HCPCS: 36415; 81001; 84153; 84154; 87086; 87088

== ENCOUNTER 2025-07-13 09:39 | Outpatient (CLI) | payer MEDICARE, SELFPAY ==
--- NOTE | 2025-07-13 09:47 | XR_ITS ---
FINAL REPORT CLINICAL HISTORY: urinary retention - Lt sided back pain COMPARISON: None FINDINGS: ABDOMEN SINGLE VIEW The visualized intestinal gas pattern appears unremarkable without evidence to suggest obstruction. No abnormal radiopacities are seen in the abdomen. IMPRESSION: No acute findings. Reviewed, Interpreted and Dictated by Calli Munguia MD Transcribed by Carmen Stewart Authenticated and [facility]
--- OUTSIDE RECORDS SUMMARY | 2025-07-13 09:51 | XMS_ITS | Clinical Summary ---
Author Organization [facility] Address [address] [place] [address] Care Team Providers Care Arch Pad Cementer Name Role Phone Pcp, No Primary Care [...] therelease of HIV test results or diagnoses. [id number] Allergies No known active allergies Medications [...] Zoster (1 of 2) 2001 Immunization: COVID-19 (1 - season) 2025 Immunization: Influenza (MyChart) (#1) 2025 Immunization: RSV (Adult) (1 - 1-dose 75+ series) 08/29 Insurance BLUE MEDICARE ADVANTAGE Advance Directives For more information, please contact: [phone] * Full Code (Latest Code Status on File) Date Activated Date Inactivated Comments 11/25/2024 7:06 PM 11/26/2024 5:30 PM Care Teams Arch Pad Cementer Relationship Specialty Start Date End Date Pcp, No No Address PCP - General 11/25/24
[2025-07-13 10:49] LABS: Blood Urea Nitrogen 25 mg/dl (9-20); Creatinine,Serum 1.10 mg/dl (0.66-1.25); Estimated Glomerular Filt Rate 66 ml/min (>60); GFR (African American) 79 ML/MIN (>60)
--- OUTSIDE RECORDS SUMMARY | 2025-07-13 10:51 | XMS_ITS | CCD ---
Author Organization Unknown Care Team Providers Care Tipple Greaser Name Role Phone Unavailable Primary Care Provider Unavailabl e Unavailable Chronic Care Management Unavaila ble Summary Purpose DataExchange Insurance Providers Payer name Policy type / Coverage type Covered libertarian ID Effective Begin Date Effective End Date [facility] [id number] Unknown Unknown Family History Family History data not found Medication Administered No Medication Administered data Reason For Visit No Reason For Visit data Medical Equipment No Medical Equipment data Advance Directives No Advance Directive data
== END 2025-07-13 23:59 | disposition home or self-care (01) ==
LOC: LAB 09:40
PROVIDERS: PCP Family Medicine; Visit Provider Urology
DX: R33.9 Retention of urine, unspecified (principal); M54.9 Dorsalgia, unspecified
CPT/HCPCS: 36415; 74018; 82565; 84520

== ENCOUNTER 2025-07-16 13:48 | Outpatient (CLI) | payer MEDICARE, SELFPAY ==
--- OUTSIDE RECORDS SUMMARY | 2025-07-16 13:51 | XMS_ITS | Clinical Summary ---
Author Organization [facility] Address [address] [place] [address] Care Team Providers Care Tax Auditor Name Role Phone Pcp, No Primary Care [...] therelease of HIV test results or diagnoses. [id number] Allergies No known active allergies Medications [...] Advance Directives For more information, please contact: [phone] * Full Code (Latest Code Status on File) Date Activated Date Inactivated Comments 11/25/2024 7:06 PM 11/26/2024 5:30 PM Care Teams Tax Auditor Relationship Specialty Start Date End Date Pcp, No No Address PCP - General 11/25/24
--- NOTE | 2025-07-16 14:00 | US_ITS ---
FINAL REPORT CLINICAL HISTORY: .lt flank pain // urinary retention COMPARISON: none FINDINGS: RENAL ULTRASOUND Ultrasound images of the kidneys were obtained. Limited images of the liver parenchyma demonstrates normal echogenicity. The right kidney measures 11.0 cm in length. The left kidney measures 11.2 cm in length. The kidneys are normal in size. There is no hydronephrosis. There are probable tiny nonobstructing stones in the lower pole of the left kidney. IMPRESSION: No evidence of obstructive uropathy. Probable mild left nephrolithiasis. Reviewed, Interpreted and Dictated by Calli Munguia MD Transcribed by Camilla Cano Authenticated and [facility]
== END 2025-07-16 23:59 | disposition home or self-care (01) ==
LOC: RAD 13:48
PROVIDERS: PCP Family Medicine; Visit Provider Urology
DX: R93.422 Abnormal radiologic findings on diagnostic imaging of left kidney (principal); R33.9 Retention of urine, unspecified; R10.9 Unspecified abdominal pain
CPT/HCPCS: 76770

== ENCOUNTER 2025-08-25 10:57 | Outpatient (CLI) | payer MEDICARE, SELFPAY ==
--- OUTSIDE RECORDS SUMMARY | 2025-08-25 10:59 | XMS_ITS | Clinical Summary ---
Author Organization [facility] Address [address] [place] [address] Care Team Providers Care Portable Pinch Riveter Name Role Phone Pcp, No Primary Care [...] therelease of HIV test results or diagnoses. [id number] Allergies No known active allergies Medications [...] Advance Directives For more information, please contact: [phone] * Full Code (Latest Code Status on File) Date Activated Date Inactivated Comments 11/25/2024 7:06 PM 11/26/2024 5:30 PM Care Teams Portable Pinch Riveter Relationship Specialty Start Date End Date Pcp, No No Address PCP - General 11/25/24
[2025-08-25 11:35] LABS: Hematocrit 46.3 % (42.0-52.0); Hemoglobin 15.7 g/dL (14.1-18.0); Immature Granulocytes % 0.4 %; Mean Corpuscular HGB Conc 33.9 g/dL (31.8-35.4); Mean Corpuscular Hemoglobin 32.3 pg (27.0-31.2); Mean Corpuscular Volume 95.3 fl (80-94); Nucleated Red Blood Cells % 0 %; Platelet Count 140 K/mm3 (142-424); Red Blood Count 4.86 M/mm3 (4.60-6.20); Red Cell Distribution Width-SD 46.7 fL; White Blood Count 6.8 K/mm3 (4.8-10.8)
--- OUTSIDE RECORDS SUMMARY | 2025-08-25 11:59 | XMS_ITS | CCD ---
Author Organization Unknown Care Team Providers Care Air And Water Tester Name Role Phone Unavailable Primary Care Provider Unavailabl e Unavailable Chronic Care Management Unavaila ble Summary Purpose DataExchange Insurance Providers Payer name Policy type / Coverage type Covered libertarian ID Effective Begin Date Effective End Date [facility] [id number] Unknown Unknown Family History Family History data not found Medication Administered No Medication Administered data Reason For Visit No Reason For Visit data Medical Equipment No Medical Equipment data Advance Directives No Advance Directive data
[2025-08-25 13:03] LABS: Alanine Aminotransferase 25 U/L (12-78); Albumin Level 4.0 g/dl (3.5-5.0); Alkaline Phosphatase 70 U/L (38-126); Anion Gap 13.0 mEq/L (5-15); Aspartate Amino Transferase 29 U/L (17-59); Bilirubin,Direct 0.3 mg/dl (0.0-0.4); Bilirubin,Indirect 1.7 mg/dL (0.0-0.9); Bilirubin,Total 2.0 mg/dl (0.2-1.3); Bilirubin,Unconjugated 1.7 mg/dL (0.0-1.1); Blood Urea Nitrogen 28 mg/dl (9-20); Calcium 8.8 mg/dl (8.4-10.2); Carbon Dioxide 26 mmol/L (22.0-30.0); Chloride 105 mmol/L (98-107); Cholesterol 144 mg/dl (140-200); Creatinine,Serum 1.10 mg/dl (0.66-1.25); Estimated Glomerular Filt Rate 66 ml/min (>60); GFR (African American) 79 ML/MIN (>60); Glucose 105 mg/dl (74-100); HDL Cholesterol 42 mg/dl (40-60); Magnesium 2.0 mg/dl (1.6-2.3); Potassium 4.0 mmoL/L (3.5-5.1); Sodium 140 mmol/L (136-145); Total Protein,Serum 6.2 g/dl (6.3-8.2); Triglycerides 150 mg/dl (30-150)
[2025-08-25 13:19] LABS: Free T4 (Free Thyroxine) 1.06 ng/dl (0.78-2.19)
[2025-08-25 13:33] LABS: Thyroid Stimulating Hormone 2.74 uIU/mL (0.465-4.68)
== END 2025-08-25 23:59 | disposition home or self-care (01) ==
LOC: RT 10:57
PROVIDERS: PCP Family Medicine; Visit Provider Nurse Practitioner
DX: I49.1 Atrial premature depolarization (principal); I48.91 Unspecified atrial fibrillation; I48.92 Unspecified atrial flutter; I49.5 Sick sinus syndrome; I47.20 Ventricular tachycardia, unspecified; R00.1 Bradycardia, unspecified; I10 Essential (primary) hypertension
CPT/HCPCS: 36415; 80048; 80061; 80076; 83735; 84439; 84443; 85025; 93270

== ENCOUNTER 2025-10-19 10:57 | Emergency (ER) | payer MEDICARE, SELFPAY ==
--- OUTSIDE RECORDS SUMMARY | 2025-10-01 10:30 | XMS_ITS | Encounter Summary ---
Author Organization [employer] ([place], [place], [place], [place], [place]) Address [address] [place] [address] Care Team Providers Care Manufacturing Test Engineer Name Role Phone Unavailable Primary Care Provider Unavailabl e Reason for Referral * CAT Scan (Routine) - New Request Specialty Diagnoses / Procedures Referred By Aubrie shetty Referred To Contact Radiology Diagnoses Abnormality of plasma protein Procedures PET/CT Skull Base-Mid Thigh (Whole Body) Randy Thompson MD [facility] [place] [address] Phone: tel: fax: Referral ID Status Reason Start Date Expiration Date V isits Requested Visits Authorized [id number] New Request 09/29/2025 09/29/2026 1 1 Reason for Visit * CAT Scan (Routine) - New Request Specialty Diagnoses / Procedures Referred By Aubrie shetty Referred To Contact Radiology Diagnoses Abnormality of plasma protein Procedures PET/CT Skull Base-Mid Thigh (Whole Body) Randy Thompsno MD [facility] [address] [place] [address] Phone: tel: fax: Referral ID Status Reason Start Date Expiration Date V isits Requested Visits Authorized [id number] New Request 09/29/2025 09/29/2026 1 1 Encounter Details Date Type Department Care Team (Late st Contact Info) Description 10/01/2025 10:30 AM EST - 10/01/2025 11:59 PM EST Hospital Encounter [facility] PET CT - [address] [place] [id number] Randy Thompson MD [address] [facility] [address] [place] [address] Abnormality of plasma protein Discharge Disposition: Home or Self Care Social History Tobacco Use Types Packs/Day Years Used Date Smoking Tobacco: Never Assessed Food Insecurity Answer Date Recorded Food run out past 12 months Not on file 06/2024 Food did not last past 12 months Not on file 07/07/2024 Employment Answer Date Recorded Help finding and keeping a job Not on file 0 07/07/2024 Family and Community Support Answer Kirt e Recorded Help with Day to Day Activities Not on file 07/07/2024 Feeling Lonely or Isolated Not on file 07/07 Educational Attainment Answer Date Zach rded Speak language other than Tajik at home Not on file 07/07/2024 Want help with school or training Not on file 07/07/2024 Substance Use Answer Date Recorded Used prescription meds for non-medical reasons N ot on file 07/07/2024 Used illegal drugs past 12 months Not on file 07/07/2024 Sex and Gender Information Value Date Recorded Sex Assigned at Not on file Legal Sex Male 2:01 PM CDT Gender Identity Not on file Sexual Orientation Not on file documented as of this encounter Plan of Treatment Not on file documented as of this encounter Procedures Procedure Name Priority Date/Time Associated Diagnosis Comments P.E.T./CT SKULL BASE TO MID-THIGH Routine 10/01/2025 12:13 PM EST Abnormality of plasma protein documented in this encounter Results * PET/CT Skull Base-Mid Thigh (Whole Body) (10/01/2025 12:13 PM EST) Anatomical Region Laterality Modality Positron Emissio n Tomography (PET) 10/01/2025 1:07 PM EST Impressions 10/01/2025 1:13 PM EST Interval development of hypermetabolic adenopathy in the AP window and left hilum highly suspicious for metastatic disease. No evidence of extrathoracic metastasis. Images reviewed, interpreted, and dictated by Dr. Carrillo Munguia. Transcribed by Shelby Sevilla PA-C. Narrative 10/01/2025 1:13 PM EST PROCEDURE: PET/CT IMAGING, SKULL BASE TO MID THIGH INDICATION: Esophageal cancer restaging. TECHNIQUE: 16.0 mCi of 18-FDG was injected intravenously with a fasting blood glucose of 87 mg/dl. PET/CT images were obtained from skull base to mid thigh. COMPARISON: July 08, 2024 FINDINGS: There is normal uptake in the neck. There is a new hypermetabolic AP window lymph node with a maximum SUV of 6.2 with the nodule measuring 16 x 10 mm. There is new hypermetabolic left hilar adenopathy with a maximum SUV of 8.7. The lymph node measures 24 x 17 mm. Again noted is a mildly spiculated oval density in the posterior right lung apex. This appears stable and is likely post inflammatory. Procedure Note Carrillo Munguia MD - 10/01/2025 PROCEDURE: PET/CT IMAGING, SKULL BASE TO MID THIGH INDICATION: Esophageal cancer restaging. TECHNIQUE: 16.0 mCi of 18-FDG was injected intravenously with a fasting blood glucose of 87 mg/dl. PET/CT images were obtained from skull base to mid thigh. COMPARISON: July 08, 2024 FINDINGS: There is normal uptake in the neck. There is a new hypermetabolic AP window lymph node with a maximum SUV of 6.2 with the nodule measuring 16 x 10 mm. There is new hypermetabolic left hilar adenopathy with a maximum SUV of 8.7. The lymph node measures 24 x 17 mm. Again noted is a mildly spiculated oval density in the posterior right lung apex. This appears stable and is likely post inflammatory. IMPRESSION: Interval development of hypermetabolic adenopathy in the AP window and left hilum highly suspicious for metastatic disease. No evidence of extrathoracic metastasis. Images reviewed, interpreted, and dictated by Dr. Carrillo Munguia. Transcribed by Shelby Sevilla PA-C. 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
[2025-10-19] VITALS (9 sets, daily range): BP systolic 161–228; BP diastolic 73–133; PULSE 73–86; RESP 12–21; TEMP 36.6–36.8; O2SAT 97–100; BMI 23.5
--- NOTE | 2025-10-19 11:07 | ECG_ITS ---
APPROVED REPORT Exam: Resting ECG HR:72 bpm ECG Measurements Heart Rate 72 AXES QRSd 82 QRS 65 QT 349 T 55 QTc 373 Conclusion ATRIAL FIBRILLATION POSSIBLE RIGHT VENTRICULAR CONDUCTION DELAY [RSR (QR) IN V1/V2] SEPTAL MYOCARDIAL INFARCTION , PROBABLY OLD [40+ ms Q WAVE IN V1/V2] ABNORMAL ECG Electronically signed by : WALTER HUMPHREY, 10/22/2025 07:14:32
--- OUTSIDE RECORDS SUMMARY | 2025-10-19 11:08 | XMS_ITS | Referral Summary ---
Author Organization [employer] ([place], [place], [place], [place], [place]) Address [address] [place] [address] Care Team Providers Care Emr Trainer Name Role Phone Unavailable Primary Care Provider Unavailabl e Encounters Date Type Department Care Team Description 10/01/2025 10:30 AM EST - 10/01/2025 11:59 PM EST Hospital Encounter [facility] PET CT - [address] [place] [address] Randy Thompson MD Abnormality of plasma protein Discharge Disposition: Home or Self Care from Last 3 Months Social History Tobacco Use Types Packs/Day Years [...] Date Zach rded Speak language other than Swazi at home Not on file 07/07/2024 Want [...] on file Sexual Orientation Not on file Plan of Treatment Not on file Procedures Procedure Name Priority Date/Time Associated Diagnosis Comments P.E.T./CT SKULL BASE TO MID-THIGH Routine 10/01/2025 12:13 PM EST Abnormality of plasma protein from Last 3 Months Results * PET/CT Skull Base-Mid Thigh (Whole [...] Carrillo Munguia. Transcribed by Shelby Sevilla PA-C. us Randy Thompson MD IMG CT ORDERABLES Final Resul t from Last 3 Months
--- OUTSIDE RECORDS SUMMARY | 2025-10-19 11:08 | XMS_ITS | Clinical Summary ---
Author Organization [email or web address] ([place], [place], [place], [place], [place]) Address [address] [place] [address] Care Team Providers Care Buttermaker Continuous Churn Name Role Phone Unavailable Primary Care Provider Unavailabl e Encounters Date Type Department Care Team Description 10/01/2025 10:30 AM EST - 10/01/2025 11:59 PM EST Hospital Encounter [facility] PET CT - [address] [place] [address] Randy Thompson MD Abnormality of [...] Date Zach rded Speak language other than Jordanian at home Not on file 07/07/2024 Want [...] Orientation Not on file Plan of Treatment Health Maintenance Due Date Last Done Comments CT Colonography 1951 Colonoscopy 1951 Colorectal Cancer Screening 1951 FOBT/FIT 1951 Fit-DNA (Cologuard) 1950 Sigmoidoscopy 1950 Depression Screening (12+) 1963 Tobacco Cessation Counseling and Screening (12+) 09/14 Hepatitis C Screening 1969 DTAP/TDAP/TD VACCINES (1 - Tdap) 1970 Pneumococcal 50+ years (1 of 1 - PCV) 2001 Shingles Vaccine (Zoster) (1 of 2) 2001 Falls Risk Screening 10/29/2024 COVID-19 VACCINE (1 - season) 2025 Influenza Vaccine (#1) 2025 Respiratory Syncytial Virus (RSV) Adult or (1 - 1-dose 75+ series) 2026 Procedures Procedure Name Priority Date/Time Associated Diagnosis [...]
--- OUTSIDE RECORDS SUMMARY | 2025-10-19 11:08 | XMS_ITS | CCD ---
Author Organization Unknown Care Team Providers Care Human Service Specialist Name Role Phone Unavailable Primary Care Provider Unavailabl e Unavailable Chronic Care Management Unavaila ble Summary Purpose DataExchange Insurance Providers Payer name Policy type / Coverage type Covered alliance party ID Effective Begin Date Effective End Date [facility] [id number] Unknown Unknown Family History Family History data not found Medication Administered No Medication Administered data Reason For Visit No Reason For Visit data Medical Equipment No Medical Equipment data Advance Directives No Advance Directive data
--- OUTSIDE RECORDS SUMMARY | 2025-10-19 11:08 | XMS_ITS | Clinical Summary ---
Author Organization [facility] Address [address] [place] [address] Care Team Providers Care Wire Mesh Filter Fabricator Name Role Phone Pcp, No Primary Care Provider [phone] Source Comments This information has been disclosed [...] therelease of HIV test results or diagnoses. [id number] Allergies No known active allergies Medications [...] of 2) 2001 Immunization: COVID-19 ( - season) 2025 Immunization: Influenza (MyChart) (#1) 2025 Immunization: RSV (Adult) (1 - 1-dose 75+ series) 08/29 Insurance BLUE MEDICARE ADVANTAGE Advance Directives For more information, please contact: [phone] * Full Code (Latest Code Status on File) Date Activated Date Inactivated Comments 11/25/2024 7:06 PM 11/26/2024 5:30 PM Care Teams Wire Mesh Filter Fabricator Relationship Specialty Start Date End Date Pcp, No No Address PCP - General 11/25/24
--- OUTSIDE RECORDS SUMMARY | 2025-10-19 11:08 | XMS_ITS | CCD ---
Author Organization Unknown Care Team Providers Care Analytics Specialist Name Role Phone Unavailable Primary Care Provider Unavailabl e Unavailable Chronic Care Management Unavaila ble Summary Purpose DataExchange Insurance Providers Payer name Policy type / Coverage type Covered green party ID Effective Begin Date Effective End Date [facility] [id number] Unknown Unknown Family History Family History data not found Medication Administered No Medication Administered data Reason For Visit No Reason For Visit data Medical Equipment No Medical Equipment data Advance Directives No Advance Directive data
--- NOTE | 2025-10-19 11:18 | ED_ITS ---
Discharge Plan Disposition Patient Disposition: Home, Self-Care Prescriptions Prescriptions: New amlodipine 5 mg tablet 5 mg PO DAILY Qty: 14 0RF No Action brimonidine-timolol 0.2-0.5 % drops 1 drp Eye-Both Eliquis 5 mg tablet 5 mg PO BID 90 Days Qty: 180 4RF metoprolol succinate 25 mg tablet extended release 24 hr 12.5 mg PO DAILY Qty: 90 3RF triamcinolone acetonide 0.1 % cream topical atorvastatin 20 mg tablet 20 mg PO DAILY Qty: 90 3RF levothyroxine 50 mcg tablet See Rx Instructions .ROUTE .COMPLEX Qty: 90 3RF Dose Instruction: TAKE 1 TABLET BY MOUTH DAILY Rx Instructions: TAKE 1 TABLET BY MOUTH DAILY Referrals Follow up/Referrals: Andrew Mcpherson MD [Primary Care Provider, Family Practice] - See instructions Activity Restrictions/Add. Instructions Additional Instructions/Restrictions: At this time it was felt you are safe to be discharged home. If new or worsening symptoms please do not hesitate to return the emergency department. Please take your blood pressure medicine as prescribed tomorrow morning when you wake up. If your blood pressure gets above 180 with chest pain or shortness of breath please come back, if your blood pressure gets above 220 regardless of symptoms please come back. Please follow-up with Dr. Mcpherson tomorrow at 10 AM. Clinical Impressions Clinical Impression: Hypertension, History of urinary self-catheterization Instructions Patient Instructions: DI for Urinary Tract Infection (UTI), DI for Urinary Tract Infection in Children Print Language Print Language: Thai Discharge ED Provider: Luiz Hanna General Adult HPI General Chief complaint: Urogenital-Male Stated complaint: High BP 210/95 Time Seen by Provider: 10/19/25 10:58 Mode of Arrival: Ambulatory Source of Information: Patient Description of Symptoms (Recalled from ER Triage Doc. by RN): Patient states that he went to the [facility] this morning because he self-caths at home and for the last week has been having trouble getting his catheter inserted. Also been having lower back pain for the last couple of days. States he had a UTI a couple of months ago and was concerned about another one. Patient states that they checked his B/P at the [facility] and sent him here. Patient denies any headache or blurred vision. States he does take Metoprolol but about a month ago PCP decreased his dose to half a pill due to his heart rate being low. History of Present Illness HPI narrative: Patient is a 75-year-old male with past medical history of BPH that self catheterizes, atrial fibrillation on anticoagulation, hypertension, enlarged lymph nodes pending biopsy who presents to the emergency department for evaluation of elevated blood pressure. Patient took his metoprolol this morning which was halved a few weeks ago due to low heart rate. He he is not on any other blood pressure medications. He does not have any chest pain or abdominal pain but his systolic blood pressure was greater than 210 at urgent care for which he presented due to difficulty catheterizing suspecting UTI causing him to become concerned and they referred him here for continued evaluation. Please note that above description of symptoms, in this electronic medical record under categorization of recalled from ER triage doctor by RN are reflective of an initial nursing assessment, however, is not reflective of my full history and physical exam that was personally taken and clarified. Consequentially, this preceding description of symptoms, which may include the patient's categorized chief complaint in the EMR, do not reflect my personal clinical impression, and the ultimate description of history of present illness and patient stated complaints should be deferred to this section of the note. Unless stated otherwise or congruent with this section of the note, additional signs, symptoms, or incongruence should be interpreted as inaccurate with my clinical impression. Related Data Home Medications ?Medication ?Instructions ?Recorded ?Confirmed brimonidine 0.2 %-timolol 0.5 % 1 drp Eye-Both 4 10/14/25 eye drops triamcinolone acetonide 0.1 % applic topical 10/14/25 10/14/25 topical cream Previous Rx's ?Medication ?Instructions ?Recorded atorvastatin 20 mg tablet 20 mg PO DAILY #90 tabs 10/30 12/23 apixaban 5 mg tablet (Eliquis) 5 mg PO BID 90 days #18 0 tabs 12/04/24 levothyroxine 50 mcg tablet See Rx Instructions .Route 02/10/25 .COMPLEX #90 tabs metoprolol succinate 25 mg 12.5 mg (1/2 x 25 mg) PO DA FLORIAN #90 08/25/25 tablet,extended release 24 hr tabs amlodipine 5 mg tablet 5 mg PO DAILY hypertension # 14 tabs 10/19/25 Allergies Allergy/AdvReac Type Severity Reaction Status Date / Time No Known Allergies Allergy Verified 10/19/25 11:09 [facility] Disclaimer: The information contained in this section may have been updated after the patient was seen, as this information can be updated by other users. Medical History Abnormal PET scan of lung History of head and neck cancer History of smoking 30 or more pack years Mediastinal lymphadenopathy Hilar lymphadenopathy Lung nodule Negative colorectal cancer screening using DNA-based stool test August 2025 Bradycardia Dizziness Colon cancer screening negative cologuard, August 2025 Tracheal stenosis Right inguinal hernia Enlarged prostate Thyroid disease Glaucoma Personal history of malignant neoplasm of other sites of lip, oral cavity, and pharynx Encounter for pre-operative cardiovascular clearance On continuous oral anticoagulation Abnormal electrocardiogram [ECG] [EKG] Afib Hyperlipidemia History of throat cancer Hypertension Surgical History Hx of inguinal hernia surgery S/P hernia surgery Family History Father Lung cancer Mother Aneurysm Social History Smoking Status: Never smoker alcohol intake: current alcohol intake frequency: a few times a week substance use type: marijuana current occupational status: retired Travel in the last 8 weeks?: None Other Medical History Have you received the Pneumonia Vaccine: No ROS Obtained: Yes Systems reviewed as appropriate & no additional complaints except as documented Physical Exam General General appearance: alert and in no apparent distress Head Head exam: atraumatic and normocephalic Eye Eye exam: Present PERRL and EOMI ENT ENT exam: Present mucous membranes moist Neck Neck exam: Present normal inspection Chest Chest inspection: Present normal inspection and symmetric chest wall rise Respiratory Respiratory exam: Present normal lung sounds bilaterally; Absent respiratory distress Cardiovascular Cardiovascular exam: Present regular rate and normal rhythm Abdominal Exam Abdominal exam: Present soft; Absent tenderness Extremities Exam Extremities exam: Present normal inspection Neurological Exam Neurological exam: Present alert and CN II-XII intact Psychiatric Psychiatric exam: Present normal affect Skin Skin exam: Present warm and dry Medical Decision Making Medical Records Screening: Per USPSTF and CDC recommendations, given the prevalence of disease in our region, it is our hospital?s policy to screen for HIV and viral Hepatitis for all patients aged 18 and over and those with ongoing risk factors. Lyle Inquiry Pt receiving controlled substance: No Vital Signs: 10/19/25 11:01 10/19/25 11:03 10/19/25 11:03 Temperature Temperature Source Pulse Rate 73 86 Pulse Rate [Right Brachial] Respiratory Rate Blood Pressure 228/133 H Blood Pressure [Right Arm] Blood Pressure Mean 164 Blood Pressure Mean [Right Arm] Blood Pressure Source [Right Arm] Blood Pressure Position [Right Arm] 02 Sat by Pulse Oximetry 97 99 Oxygen Delivery Method 10/19/25 11:04 10/19/25 11:15 10/19/25 11:19 Temperature 97.9 F Temperature Source Oral Pulse Rate 85 Pulse Rate [Right Brachial] 77 Respiratory Rate 16 21 Blood Pressure 190/106 H Blood Pressure [Right Arm] 228/133 H Blood Pressure Mean 134 Blood Pressure Mean [Right Arm] 164 Blood Pressure Source [Right Arm] Automatic Cuff Blood Pressure Position [Right Arm] Sitting 02 Sat by Pulse Oximetry 99 99 Oxygen Delivery Method Room Air 10/19/25 11:19 Temperature Temperature Source Pulse Rate 76 Pulse Rate [Right Brachial] Respiratory Rate 18 Blood Pressure Blood Pressure [Right Arm] Blood Pressure Mean Blood Pressure Mean [Right Arm] Blood Pressure Source [Right Arm] Blood Pressure Position [Right Arm] 02 Sat by Pulse Oximetry 98 Oxygen Delivery Method Lab Data Lab Results 10/19/25 11:20: WBC 8.6, RBC 5.23, Hgb 17.2, Hct 48.7, MCV 93.1, MCH 32.9 H, MCHC 35.3, RDW 13.7, Plt Count 154, MPV 10.3, Neut % (Auto) 74.5, Lymph % (Auto) 13.7, Hardy % (Auto) 9.5 H, Eos % (Auto) 1.3, Baso % (Auto) 0.7, Neut # (Auto) 6.4, Lymph # (Auto) 1.2, Hardy # (Auto) 0.8, Eos # (Auto) 0.1, Baso # (Auto) 0.1, Sodium 139, Potassium 5.1, Chloride 104, Carbon Dioxide 24, Anion Gap 16.1 H, B UN 33 H, Creatinine 1.20, Estimated Creat Clear 57, Estimated GFR 59, Est GFR ( Amer) 72, Glucose 112 H, Calcium 10.0, Total Bilirubin 2.1 H, AST 41, ALT 29, Alkaline Phosphatase 56, Troponin I < 0.01, Total Protein 8.6 H D, A lbumin 5.4 H, Globulin 3.2, Albumin/Globulin Ratio 1.7 10/19/25 11:29: Urine Color Yellow, Urine Appearance Clear, Urine pH 5.5, Ur Specific Seltzer 1.010, Urine Protein Negative, Urine Glucose (UA) Negative, Urine Ketones Negative, Urine Blood Trace-l, Urine Nitrate Negative, Urine Bilirubin Negative, Urine Urobilinogen 0.2, Ur Leukocyte Esterase Negative, Urine RBC None, Urine WBC Occasional, Ur Squamous Epith Cells None, Urine Bacteria None 10/19/25 11:20 10/19/25 11:20 Orders (Tests/Meds): ED MEDICATIONS Discontinued Medications Generic Name Dose Route Start Last Admin Trade Name Freq PRN Reason Stop Dose Admin Amlodipine Besylate 5 mg 10/19/25 11:55 10/19/25 12:06 Amlodipine 5mg Tablet PO 10/19/25 11:56 5 mg ONCE ONE Administration ORDERS Category Date Time Status CBC w/Auto Diff [Complete Blood Count Auto Diff] Stat Lab 10/19/25 11:20 Completed CMP [Comprehensive Metabolic Panel] Stat Lab 10/19/25 11:20 Completed Trop I [Troponin I] Stat Lab 10/19/25 11:20 Completed Troponin I Q3H Lab 10/19/25 14:30 Ordered Troponin I Q3H Lab 10/19/25 17:30 Ordered UA [Urinalysis and Microscopic] Stat Lab 10/19/25 11:29 Completed ECG Data Tracing #1: Independently interpreted by me rate is 72, rhythm is irregular, axis is normal, no ST elevation in anatomical contiguous leads, QTc 473, atrial fibrillation. Medical Decision Narrative: In summary patient is a 75-year-old male with past medical history described above who presents emergency department for evaluation of elevated blood pressure and difficulty self catheterizing. Patient is hemodynamically stable and nontoxic-appearing upon arrival, afebrile. Systolic blood pressure 228. Patient does not have any acute chest pain or shortness of breath or focal neurologic deficits. Will allow him to rest for a minute and will retake blood pressure and determine best medication course as I do not want to precipitate a drop too quickly if not needed. Hematologic labs will be obtained. Self catheterize urinalysis will be obtained. Upon repeat evaluation patient's blood pressure was 190/106, I discussed case with Dr. Mcpherson we will initiate amlodipine at this time given anticipation of no endorgan damage on labs. Hematologic labs are reviewed by me and are nonactionable no significant leukocytosis no transfusable anemia no GERA or critical electrolyte abnormality, initial troponin undetectably low. Urinalysis interpreted by me and not consistent with infection. Upon repeat evaluation patient continued to be well- appearing hemodynamically stable. Given this patient is appropriate for outpatient management at this time and will follow-up with Dr. Mcpherson 10 AM tomorrow morning was given return precautions and verbalized understanding. Critical Care Critical Care Time Critical Care Time: No
--- NOTE | 2025-10-19 11:25 | PC.NURSE ---
patient to perform self catheterization to provide urine specimen for analysis.
[2025-10-19 11:28] LABS: Hematocrit 48.7 % (42.0-52.0); Hemoglobin 17.2 g/dL (14.1-18.0); Immature Granulocytes % 0.3 %; Mean Corpuscular HGB Conc 35.3 g/dL (31.8-35.4); Mean Corpuscular Hemoglobin 32.9 pg (27.0-31.2); Mean Corpuscular Volume 93.1 fl (80-94); Nucleated Red Blood Cells % 0 %; Platelet Count 154 K/mm3 (142-424); Red Blood Count 5.23 M/mm3 (4.60-6.20); Red Cell Distribution Width-SD 45.7 fL; White Blood Count 8.6 K/mm3 (4.8-10.8)
[2025-10-19 11:34] LABS: Albumin Level 5.4 g/dl (3.5-5.0); Chloride 104 mmol/L (98-107)
[2025-10-19 11:34] LABS: Microscopic, Urine URINE MICROSCOPIC (MICROSCOPIC)
[2025-10-19 11:35] LABS: Potassium 5.1 mmoL/L (3.5-5.1); Sodium 139 mmol/L (136-145)
[2025-10-19 11:37] LABS: Blood Urea Nitrogen 33 mg/dl (9-20); Creatinine Clearance Estimated 57 mL/min (50-200); Creatinine,Serum 1.20 mg/dl (0.66-1.25); Estimated Glomerular Filt Rate 59 ml/min (>60); GFR (African American) 72 ML/MIN (>60)
[2025-10-19 11:38] LABS: Alanine Aminotransferase 29 U/L (12-78); Albumin/Globulin Ratio 1.7 (1.1-1.8); Alkaline Phosphatase 56 U/L (38-126); Anion Gap 16.1 mEq/L (5-15); Aspartate Amino Transferase 41 U/L (17-59); Bilirubin,Total 2.1 mg/dl (0.2-1.3); Calcium 10.0 mg/dl (8.4-10.2); Carbon Dioxide 24 mmol/L (22.0-30.0); Globulin 3.2 g/dL (1.3-3.2); Glucose 112 mg/dl (74-100); Total Protein,Serum 8.6 g/dl (6.3-8.2)
[2025-10-19 11:53] LABS: Troponin I < 0.01 ng/ml (0.00-0.034)
[2025-10-19 11:58] LABS: Bilirubin,Urine Negative (Negative); Color,Urine YELLOW (Yellow); Glucose,Urine (UA) Negative (Negative); Ketones,Urine Negative (Negative); Leukocyte Esterase,Urine Negative (Negative); PH,Urine 5.5 (5.0-8.5); Protein,Urine Negative (Negative); Specific Gravity, Urine 1.010 (1.005-1.030); Urobilinogen,Urine 0.2 EU/dl (0.2)
[2025-10-19] MEDS: AMLODIPINE 5MG TABLET 5 MG PO (12:06)
[2025-10-19 12:07] LABS: WBC,Urine Occasional #/hpf (0-3)
== END 2025-10-19 12:59 | disposition home or self-care (01) ==
PROVIDERS: Emergency Provider Emergency Medicine; PCP Family Medicine
DX: N40.0 Benign prostatic hyperplasia without lower urinary tract symptoms (principal); I10 Essential (primary) hypertension
CPT/HCPCS: 80053; 81001; 84484; 85025; 93005; 99284

== ENCOUNTER 2025-10-22 21:27 | Emergency (ER) | payer MEDICARE, SELFPAY ==
--- OUTSIDE RECORDS SUMMARY | 2025-10-01 10:30 | XMS_ITS | Encounter Summary ---
Author Organization [employer] ([place], [place], [place], [place], [place]) Address [address] [place] [address] Care Team Providers Care Concrete Floater Name Role Phone Unavailable Primary Care Provider Unavailabl e Reason for Referral * CAT Scan (Routine) - New Request Specialty Diagnoses / Procedures Referred By Aubrie shetty Referred To Contact Radiology Diagnoses Abnormality of plasma protein Procedures PET/CT Skull Base-Mid Thigh (Whole Body) Randy Thompson MD [facility] [place] [address] Phone: tel: fax: Referral ID Status Reason Start Date Expiration Date V isits Requested Visits Authorized [id number] New Request 09/29/2025 09/29/2026 1 1 Reason for Visit * CAT Scan (Routine) - New Request Specialty Diagnoses / Procedures Referred By Aubrie shetty Referred To Contact Radiology Diagnoses Abnormality of plasma protein Procedures PET/CT Skull Base-Mid Thigh (Whole Body) Randy Thompson MD [facility] [address] [place] [address] Phone: tel: fax: Referral ID Status Reason Start Date Expiration Date V isits Requested Visits Authorized [id number] New Request 09/29/2025 09/29/2026 1 1 Encounter Details Date Type Department Care Team (Late st Contact Info) Description 10/01/2025 10:30 AM EST - 10/01/2025 11:59 PM EST Hospital Encounter [facility] PET CT - [email or web address] [place] [id number] Randy Thompson MD [address] [facility] [address] [place] [address] Abnormality of plasma protein Discharge Disposition: Home [...] Date Zach rded Speak language other than Luxembourger at home Not on file 07/07/2024 Want [...]
--- NOTE | 2025-10-22 21:25 | ECG_ITS ---
APPROVED REPORT Exam: Resting ECG HR:76 bpm ECG Measurements Heart Rate 76 AXES QRSd 82 QRS 47 QT 345 T 57 QTc 375 Conclusion Atrial fibrillation Normal axis No STEMI Electronically signed by : Byron Mcfadden, 10/23/2025 02:01:45
--- OUTSIDE RECORDS SUMMARY | 2025-10-22 21:36 | XMS_ITS | Referral Summary ---
Author Organization [employer] ([place], [place], [place], [place], [place]) Address [address] [place] [address] Care Team Providers Care Bag Filler Machine Operator Name Role Phone Unavailable Primary Care Provider Unavailabl e Encounters Date Type Department Care Team Description 10/01/2025 10:30 AM EST - 10/01/2025 11:59 PM EST Hospital Encounter [facility] PET CT - [address] [place] [address] Randy Thompson MD Abnormality of [...] Date Zach rded Speak language other than Micronesian at home Not on file 07/07/2024 Want [...]
--- OUTSIDE RECORDS SUMMARY | 2025-10-22 21:36 | XMS_ITS | Clinical Summary ---
Author Organization [facility] Address [address] [place] [id number] Care Team Providers Care Charge Accounts Audit Clerk Name Role Phone Pcp, No Primary Care [...] therelease of HIV test results or diagnoses. [id number] Allergies No known active allergies Medications [...] Advance Directives For more information, please contact: [phone] * Full Code (Latest Code Status on File) Date Activated Date Inactivated Comments 11/25/2024 7:06 PM 11/26/2024 5:30 PM Care Teams Charge Accounts Audit Clerk Relationship Specialty Start Date End Date Pcp, No No Address PCP - General 11/25/24
--- OUTSIDE RECORDS SUMMARY | 2025-10-22 21:36 | XMS_ITS | CCD ---
Author Organization Unknown Care Team Providers Care Screen Examiner Name Role Phone Unavailable Primary Care Provider Unavailabl e Unavailable Chronic Care Management Unavaila ble Summary Purpose [employer] Insurance Providers Payer name Policy type / Coverage type Covered green party ID Effective Begin Date Effective End Date [facility] [place] [id number] Unknown Unknown Family History Family History data not found Medication Administered No Medication Administered data Reason For Visit No Reason For Visit data Medical Equipment No Medical Equipment data Advance Directives No Advance Directive data
--- OUTSIDE RECORDS SUMMARY | 2025-10-22 21:36 | XMS_ITS | CCD ---
Author Organization Unknown Care Team Providers Care Canvas Cutter Name Role Phone Unavailable Primary Care Provider Unavailabl e Unavailable Chronic Care Management Unavaila ble Summary Purpose [employer] Insurance Providers Payer name Policy type / Coverage type Covered republican ID Effective Begin Date Effective End Date [facility] [id number] Unknown Unknown Family History Family History data not found Medication Administered No Medication Administered data Reason For Visit No Reason For Visit data Medical Equipment No Medical Equipment data Advance Directives No Advance Directive data
--- OUTSIDE RECORDS SUMMARY | 2025-10-22 21:36 | XMS_ITS | Clinical Summary ---
Author Organization [employer] ([place], [place], [place], [place], [place]) Address [address] [place] [address] Care Team Providers Care Director Information Security Name Role Phone Unavailable Primary Care Provider Unavailabl e Encounters Date Type Department Care Team Description 10/01/2025 10:30 AM EST - 10/01/2025 11:59 PM EST Hospital Encounter [facility] PET CT - [address] [place] [address] Randy Thompson MD Abnormality of [...] Date Zach rded Speak language other than Norwegian at home Not on file 07/07/2024 Want [...]
[2025-10-22 21:52] VITALS: BP 202/112; PULSE 71; RESP 22; TEMP 36.6; O2SAT 99; BMI 29.9
[2025-10-22 21:58] LABS: Hematocrit 50.1 % (42.0-52.0); Hemoglobin 17.2 g/dL (14.1-18.0); Immature Granulocytes % 0.4 %; Mean Corpuscular HGB Conc 34.3 g/dL (31.8-35.4); Mean Corpuscular Hemoglobin 32.0 pg (27.0-31.2); Mean Corpuscular Volume 93.3 fl (80-94); Nucleated Red Blood Cells % 0 %; Platelet Count 162 K/mm3 (142-424); Red Blood Count 5.37 M/mm3 (4.60-6.20); Red Cell Distribution Width-SD 46.1 fL; White Blood Count 9.5 K/mm3 (4.8-10.8)
[2025-10-22 22:04] LABS: Albumin Level 5.2 g/dl (3.5-5.0); Chloride 103 mmol/L (98-107); Potassium 4.4 mmoL/L (3.5-5.1); Sodium 140 mmol/L (136-145)
[2025-10-22 22:06] LABS: Blood Urea Nitrogen 29 mg/dl (9-20); Creatinine Clearance Estimated 57 mL/min (50-200); Creatinine,Serum 1.20 mg/dl (0.66-1.25); Estimated Glomerular Filt Rate 59 ml/min (>60); GFR (African American) 72 ML/MIN (>60)
[2025-10-22 22:07] LABS: Alanine Aminotransferase 34 U/L (12-78); Albumin/Globulin Ratio 1.5 (1.1-1.8); Alkaline Phosphatase 52 U/L (38-126); Anion Gap 15.4 mEq/L (5-15); Aspartate Amino Transferase 39 U/L (17-59); Bilirubin,Total 1.9 mg/dl (0.2-1.3); Calcium 9.9 mg/dl (8.4-10.2); Carbon Dioxide 26 mmol/L (22.0-30.0); Globulin 3.4 g/dL (1.3-3.2); Glucose 106 mg/dl (74-100); Total Protein,Serum 8.6 g/dl (6.3-8.2)
[2025-10-22] MEDS: ASPIRIN 81MG CHEWABLE TABLET 324 MG PO (22:12)
[2025-10-22 22:23] LABS: Troponin I < 0.01 ng/ml (0.00-0.034)
--- NOTE | 2025-10-22 22:23 | CT_ITS ---
PROCEDURE INFORMATION: Exam: CTA Chest With Contrast Exam date and time: 10/22/2025 10:43 PM Age: 75 years old Clinical indication: Pain; Chest pressure; Additional info: Chest pain TECHNIQUE: Imaging protocol: Computed tomographic angiography of the chest with contrast. Exam focused on the arteries. 3D rendering (Not supervised by radiologist): MIP and/or 3D reconstructed images were created by the technologist. Radiation optimization: All CT scans at this facility use at least one of these dose optimization techniques: automated exposure control; mA and/or kV adjustment per patient size (includes targeted exams where dose is matched to clinical indication); or iterative reconstruction. Contrast material: ISOVUE; Contrast volume: 70 ml; Contrast route: INTRAVENOUS (IV); COMPARISON: PT P.E.T./CT SKULL BASE TO MID-THIGH 07/08/2024 11:40 AM FINDINGS: Pulmonary arteries: Normal. No pulmonary emboli. Aorta: Unremarkable. No aortic aneurysm. No aortic dissection. Lungs: Stable stellate masslike scar right lung apex. Pleural spaces: Unremarkable. No pneumothorax. No pleural effusion. Heart: Unremarkable. No cardiomegaly. No pericardial effusion. Lymph nodes: Unremarkable. No enlarged lymph nodes. Bones/joints: Unremarkable. No acute fracture. Soft tissues: Unremarkable. IMPRESSION: No acute findings.
[2025-10-22 22:30] VITALS: BP 179/98; PULSE 67; RESP 14; O2SAT 98
[2025-10-22 22:40] LABS: Lipase 312 U/L (23-300)
[2025-10-22] MEDS: 0.9 % SODIUM CHLORIDE 50 ML VIAL IV (22:49)
[2025-10-22] MEDS: IOPAMIDOL-370 (76%);100ML BOTTLE 70 ML IV (22:49)
[2025-10-22] MEDS: SODIUM CHLORIDE 0.9% 10ML SYR (RAD ONLY) 10 ML IV (22:49)
[2025-10-22 23:00] VITALS: BP 154/82; RESP 11
[2025-10-22 23:30] VITALS: BP 153/97; PULSE 65; RESP 13; O2SAT 98
[2025-10-23] VITALS: BP 134/80; RESP 13
[2025-10-23 00:55] LABS: Bilirubin,Direct 0.6 mg/dl (0.0-0.4)
--- NOTE | 2025-10-23 01:01 | [facility].EDCP ---
Discharge Plan Disposition Patient Disposition: Home, Self-Care Condition: Good Prescriptions Prescriptions: No Action brimonidine-timolol 0.2-0.5 % drops 1 drp Eye-Both amlodipine 5 mg tablet 5 mg PO DAILY Qty: 30 2RF Eliquis 5 mg tablet 5 mg PO BID 90 Days Qty: 180 4RF triamcinolone acetonide 0.1 % cream topical atorvastatin 20 mg tablet 20 mg PO DAILY Qty: 90 3RF levothyroxine 50 mcg tablet See Rx Instructions .ROUTE .COMPLEX Qty: 90 3RF Dose Instruction: TAKE 1 TABLET BY MOUTH DAILY Rx Instructions: TAKE 1 TABLET BY MOUTH DAILY Referrals Follow up/Referrals: Andrew Mcpherson MD [Primary Care Provider, Family Practice] - See instructions Activity Restrictions/Add. Instructions Additional Instructions/Restrictions: Your heart enzymes and CT scans were normal. I want you to keep a blood pressure log at home, and then follow up with Dr. Mcpherson to discuss both your blood pressure medication regimen AND your elevated bilirubin seen on your labs today. If you have any new or worsening symptoms please return. Clinical Impressions Clinical Impression: Elevated blood pressure reading, Elevated bilirubin Chest pain Qualifiers: Chest pain type: unspecified Qualified Code(s): R07.9 - Chest pain, unspecified Print Language Print Language: [place] Discharge ED Provider: Byron Mcfadden General Chief Complaint: Chest Pain Stated Complaint: chest pain Time Seen by Provider: 10/22/25 22:25 Mode of Arrival: Ambulatory Source of Information: Patient Description of Symptoms (Recalled from ER Triage Doc. by RN): pt reports he woke up with chest pain and feeling like his blood pressure was elevated. pt reports he is SOB and expierencing left sided chest pain History of Present Illness HPI narrative: This is a 75-year-old male patient, with past medical history of hypertension, hyperlipidemia, atrial fibrillation anticoagulated on Eliquis, and remote throat cancer, who is presenting to the emergency department today for evaluation of chest pain. The patient tells me that he was sleeping this evening and was woken up with sharp chest pains. The patient measured his blood pressure and found that it was elevated in the 160 systolic, so he remeasured his blood pressure again and it was elevated to 180 systolic. He was actually seen recently in the emergency department for hypertension and was afraid that he was experiencing a hypertensive crisis so he presented here for further evaluation. The patient recently had a PET scan that showed active lymph nodes in his chest which is being followed by Dr. Magana of the pulmonology clinic. He is scheduled for further workup to determine whether he has return of cancer with these active lymph nodes on PET scan. He has not had any lower extremity erythema or edema. He is not experiencing any shortness of breath. No abdominal pain. Related Data Home Medications ?Medication ?Instructions ?Recorded ?Confirmed brimonidine 0.2 %-timolol 0.5 % 1 drp Eye-Both 06/09/24 10/20/25 eye drops triamcinolone acetonide 0.1 % applic topical 10/14/25 10/20/25 topical cream Previous Rx's ?Medication ?Instructions ?Recorded atorvastatin 20 mg tablet 20 mg PO DAILY #90 tabs 11/19/24 apixaban 5 mg tablet (Eliquis) 5 mg PO BID 90 days #180 tabs 12/04/24 levothyroxine 50 mcg tablet See Rx Instructions .Route 02/10/25 .COMPLEX #90 tabs amlodipine 5 mg tablet 5 mg PO DAILY hypertension #30 tabs 10/20/25 Allergies Allergy/AdvReac Type Severity Reaction Status Date / Time No Known Allergies Allergy Verified 10/20/25 10:06 [facility] Disclaimer: The information contained in this section may have been updated after the patient was seen, as this information can be updated by other users. Medical History Abnormal PET scan of lung History of head and neck cancer History of smoking 30 or more pack years Mediastinal lymphadenopathy Hilar lymphadenopathy Lung nodule Negative colorectal cancer screening using DNA-based stool test August 2025 Bradycardia Dizziness Colon cancer screening negative [facility], August 2025 Tracheal stenosis Right inguinal hernia Enlarged prostate Thyroid disease Glaucoma Personal history of malignant neoplasm of other sites of lip, oral cavity, and pharynx Encounter for pre-operative cardiovascular clearance On continuous oral anticoagulation Abnormal electrocardiogram [ECG] [EKG] Afib Hyperlipidemia History of throat cancer Hypertension Surgical History Hx of inguinal hernia surgery S/P hernia surgery 1979 Family History Father Lung cancer Mother Aneurysm Social History (Updated 10/20/25 @ 10:08 by DONNA Anderson Smoking Status: Former smoker alcohol intake: current alcohol intake frequency: a few times a week substance use type: marijuana current occupational status: retired Travel in the last 8 weeks?: None Have you lived/traveled outside [place] in past 30 days?: No Contact w/someone who lives/traveled outside US past 30 days?: No Exposure to someone with infectious disease in past 14 days?: No Do you have a fever (greater than 100.4 F or 38 C)?: No Have you tested positive for COVID-19?: No Exposed to someone with COVID-19 in past 14 days?: No Do you have a sore throat?: No Do you have a cough?: No Do you have any weakness?: No Do you have any diarrhea?: No Are you experiencing any unusual bleeding?: No Do you have any muscle aches/pain?: No Do you have any abdominal pain?: No Are you experiencing loss of taste or smell?: No Other Medical History Have you received the Pneumonia Vaccine: No ROS Obtained: Yes Systems reviewed as appropriate & no additional complaints except as documented Physical Exam General General appearance: other (See MDM) Respiratory Respiratory exam: Present other (See MDM) Cardiovascular Cardiovascular exam: Present other (See MDM) Neurological Exam Neurological exam: Present other (See MDM) HEART Score HEART Score HEART Score assessment performed?: Yes History (anamnesis): Moderately suspicious ECG: Normal Age: >65 years Risk factors: 1-2 risk factors Troponin: </= normal limit HEART Score: 4 Critical Care Critical Care Time Critical Care Time: No Medical Decision Making Medical Records Medical records reviewed: Yes I reviewed the patient's medical records. Lyle Inquiry Pt receiving controlled substance: No Lyle was queried for this patient: No Vital Signs Vital Signs: 10/22/25 21:52 10/22/25 22:30 10/22/25 23:00 Temperature 97.9 F Temperature Source Oral Pulse Rate 67 Pulse Rate [Right] 71 Respiratory Rate 22 14 11 L Blood Pressure 179/98 H 154/82 H Blood Pressure [Right Arm] 202/112 H Blood Pressure Mean 126 107 Blood Pressure Mean [Right Arm] 142 02 Sat by Pulse Oximetry 99 98 Oxygen Delivery Method Room Air 10/22/25 23:30 10/23/25 00:00 Temperature Temperature Source Pulse Rate 65 Pulse Rate [Right] Respiratory Rate 13 13 Blood Pressure 153/97 H 134/80 Blood Pressure [Right Arm] Blood Pressure Mean 115 100 Blood Pressure Mean [Right Arm] 02 Sat by Pulse Oximetry 98 Oxygen Delivery Method Lab Data Labs: Lab Results 10/22/25 21:30: WBC 9.5, RBC 5.37, Hgb 17.2, Hct 50.1, MCV 93.3, MCH 32.0 H, MCHC 34.3, RDW 13.5, Plt Count 162, MPV 10.1, Neut % (Auto) 69.0, Lymph % (Auto) 19.0, [place] % (Auto) 9.0, Eos % (Auto) 2.1, Baso % (Auto) 0.5, Neut # (Auto) 6.5, Lymph # (Auto) 1.8, [place] # (Auto) 0.9, Eos # (Auto) 0.2, Baso # (Auto) 0.1, Sodium 140, Potassium 4.4, Chloride 103, Carbon Dioxide 26, Anion Gap 15.4 H, BUN 29 H, Creatinine 1.20, Estimated Creat Clear 57, Estimated GFR 59, Est GFR ( Amer) 72, Glucose 106 H, Calcium 9.9, Total Bilirubin 1.9 H, Direct Bilirubin 0.6 H, Indirect Bilirubin 1.3 H, AST 39, ALT 34, Alkaline Phosphatase 52, Troponin I < 0.01, Total Protein 8.6 H, Albumin 5.2 H, Globulin 3.4 H, Albumin/Globulin Ratio 1.5, Lipase 312 H 10/23/25 01:15: Troponin I < 0.01 10/22/25 21:30 10/22/25 21:30 Response Orders (Tests/Meds): ED MEDICATIONS Generic Name Dose Route Start Last Admin Trade Name Freq PRN Reason Stop Dose Admin Nitroglycerin 0.4 mg 10/22/25 21:51 Nitroglycerin 0.4mg Sl Tablet SL 10/23/25 21:52 [id number] PRN Chest Pain Discontinued Medications Generic Name Dose Route Start Last Admin Trade Name Freq PRN Reason Stop Dose Admin Aspirin 324 mg 10/22/25 21:51 10/22/25 22:12 Aspirin 81mg Chewable Tablet PO 10/22/25 21:52 162 mg ONCE ONE Administration Iopamidol 70 ml 10/22/25 22:48 10/22/25 22:49 Iopamidol-370 (76%);100ml Bottle IV 10/22/25 22:49 70 ml ONCE ONE Administration Sodium Chloride 10 ml 10/22/25 22:48 10/22/25 22:49 Sodium Chloride 0.9% 10ml Syr (Rad Only) IV 10/22/25 22:49 10 ml ONCE ONE Administration Sodium Chloride 50 ml 10/22/25 22:48 10/22/25 22:49 0.9 % Sodium Chloride 50 Ml Vial IV 10/22/25 22:49 50 ml ONCE ONE Administration ORDERS Category Date Time Status CT angio chest PE protocol Stat Cat Scan 10/22/25 22:23 Completed Bilirubin,Direct Stat Lab 10/23/25 00:32 Completed Bilirubin,Indirect Stat Lab 10/23/25 00:32 Completed Complete Blood Count Auto Diff Stat Lab 10/22/25 21:30 Completed Comprehensive Metabolic Panel Stat Lab 10/22/25 21:30 Completed Lipase Stat Lab 10/22/25 21:30 Completed Troponin I Q3H Lab 10/23/25 01:15 Completed Troponin I Q3H Lab 10/23/25 04:00 Ordered Troponin I Stat Lab 10/22/25 21:30 Completed EKG Request [ECG Request] Stat Y 10/23/25 00:20 Ordered MDM Narrative Medical Decision Narrative: In summary, this is a 75-year-old male patient who is presenting to the emergency department today for evaluation of sudden onset chest pain that woke him from sleep this evening after which he measured his blood pressure and found that it was significantly elevated. The patient's comorbidities include remote throat cancer with possible recurrence, hypertension, hyperlipidemia, and atrial fibrillation for which he is anticoagulated on Eliquis. On initial evaluation of the patient they were resting comfortably in no acute distress and nontoxic in appearance. They are hemodynamically stable, saturating well room air, and are neurologically intact. On physical examination the patient is mildly hypertensive. He is nontachycardic. He is breathing comfortably with a normal respiratory rate and no prolonged expiration. His lung exam demonstrates no wheezes rales or rhonchi bilaterally. His abdomen is soft and nontender. He has no lower extremity erythema or edema. Given that the patient is experiencing chest pain we have administered 324 mg of aspirin. Differential diagnosis includes ACS/FL, pneumonia, pulmonary embolism, electrolyte derangement, acute kidney injury, hypertensive urgency, hypertensive emergency, among others. Workup was initiated with an EKG that was personally interpreted by me and demonstrates atrial fibrillation at a rate of 76 bpm, normal axis, narrow QRS, no QTc prolongation. No ST patient or depression. No overt signs of ischemia. Labs were personally turbid by me and demonstrate no evidence of leukocytosis. No anemia. No significant electrolyte derangements or evidence of acute kidney injury. Interestingly, the patient's bilirubin is elevated at 1.9. Looking back at his prior labs dating all the way back to October 2023 the patient has a smoldering elevation of his bilirubin. He has never had formal workup for this. He also has no elevation of his alkaline phosphatase or transaminases today so I do not feel that he is experiencing acute biliary pathology. Additionally, he has no right upper quadrant tenderness on examination. We will plan to order a direct and indirect bilirubin have Dr. Mcpherson follow this up in clinic in the clinic. Patient is aware of this plan and acknoweldges understanding. Given that the patient has possible recurrence of cancer and history of cancer with new onset chest pain, I decided to proceed with a CT PE study to rule out pulmonary embolism. The scan was personally interpreted by me and demonstrates no evidence of saddle pulmonary embolus. Official radiology read is in agreement and states that there is no acute findings on this examination. On repeat assessment of the patient he states that he is asymptomatic of chest pain at this time. His blood pressure has normalized to 134/80. Currently his second troponin is pending. Second troponin has resulted. Patient still remains asymptomatic of chest pain. At this time he is stable for discharge home to follow-up with his primary care physician Dr. Mcpherson. We have discussed keeping a daily blood pressure log at home. He understands that he should return to the emergency department if he develops recurrent chest pain or shortness of breath
[2025-10-23 01:25] LABS: Bilirubin,Indirect 1.3 mg/dL (0.0-0.9)
[2025-10-23 02:01] LABS: Troponin I < 0.01 ng/ml (0.00-0.034)
[2025-10-23 02:13] VITALS: BP 142/70; PULSE 62; RESP 16; TEMP 36.8; O2SAT 99
== END 2025-10-23 02:14 | disposition home or self-care (01) ==
PROVIDERS: Emergency Provider Student in an Organized Health Care Education/Training Program; PCP Family Medicine
DX: R07.9 Chest pain, unspecified (principal); R06.02 Shortness of breath; R17 Unspecified jaundice; I10 Essential (primary) hypertension; I48.0 Paroxysmal atrial fibrillation; Z79.01 Long term (current) use of anticoagulants; Z87.891 Personal history of nicotine dependence; Z85.89 Personal history of malignant neoplasm of other organs and systems
CPT/HCPCS: 71275; 80053; 82248; 83690; 84484; 85025; 93005; 99285; Q9967